=== PATIENT | female | born 1990 | race Caucasian/White ===

== ENCOUNTER 2017-10-10 15:31 | Emergency (ER) | payer MEDICAID, OTHER ==
[~2017-10-10] VITALS: Ht 170.2 cm; Wt 70.3 kg
[~2017-10-10 15:31] MED LIST: ACHD5005 PO; CPR500T PO; FERR-57 PO; OMEP20TA2 PO; PHEN100T26 PO; SULF1TAB38 PO
[2017-10-10 16:22] LABS: BASOPHILS % (AUTO) 0 % (0-10); EOSINOPHILS # (AUTO) 0.3 10^3/uL (0.0-0.3); EOSINOPHILS % (AUTO) 3 % (0-10); HEMATOCRIT 29 % (35-52); HEMOGLOBIN 8.6 G/DL (11.5-16.0); LYMPHOCYTES # (AUTO) 2.1 X 10^3 (1.0-4.0); LYMPHOCYTES % (AUTO) 24 % (12-44); MEAN CORPUSCULAR HEMOGLOBIN 23 PG (25-34); MEAN CORPUSCULAR HGB CONC 30 G/DL (32-36); MEAN CORPUSCULAR VOLUME 75 FL (80-99); MONOCYTES # (AUTO) 0.7 X 10^3 (0.0-1.0); MONOCYTES % (AUTO) 8 % (0-12); NEUTROPHILS # (AUTO) 5.6 X 10^3 (1.8-7.8); NEUTROPHILS % (AUTO) 65 % (42-75); PLATELET COUNT 396 10^3/uL (130-400); RED BLOOD COUNT 3.83 10^6/uL (4.35-5.85); RED CELL DISTRIBUTION WIDTH 16.8 % (10.0-14.5); WHITE BLOOD COUNT 8.6 10^3/uL (4.3-11.0)
--- NOTE | 2017-10-10 16:24 | ED GU-Female ---
General Chief Complaint: -Female Stated Complaint: R FLANK PAIN Nursing Triage Note: PATIENT STATES THAT SHE HAS POLYCYSTIC KIDNEY DISEASE AND HAS HAD PAIN X2 DAYS THAT WORSENED TODAY. STATES PAIN IN RIGHT FLANK FEELS LIKE A STONE. Nursing Sepsis Screen: No Definite Risk Source: patient Exam Limitations: no limitations History of Present Illness Date Seen by Provider: Oct 10, 2017 Time Seen by Provider: 16:22 Initial Comments to ER with reports of sudden onset right flank pain 1 hour ago. States it feels like a kidney stone. She states she is allergic to Toradol.. She reports a history of polycystic kidney disease. Timing/Duration: just prior to arrival Severity/Quality: moderate Location: right flank Radiation: none Activities at Onset: none Prior Genitourinary Problems: none Allergies and Home Medications Allergies Coded Allergies: ketorolac (Verified Allergy, Unknown, 10/10/17) Home Medications Ciprofloxacin 500 Mg Tablet, 1 TAB PO BID, (Reported) Ferrous Sulfate 325 Mg Tablet, 325 MG PO TID, (Reported) Hydrocodone Bit/Acetaminophen 1 Each Tablet, 1 EACH PO Q6H, (Reported) Hydrocodone/Acetaminophen 1 Each Tablet, 1 EACH PO Q6H PRN for PAIN-MODERATE Prescribed by: MADELIN PARKER on 10/10/17 1709 Omeprazole 20 Mg Tablet.dr, 20 MG PO DAILY, (Reported) Phenazopyridine Hcl 100 Mg Tablet, 100 MG PO TID, (Reported) Patient Home Medication List Home Medication List Reviewed: Yes Review of Systems Constitutional: see HPI EENTM: see HPI Respiratory: no symptoms reported Cardiovascular: no symptoms reported Genitourinary: see HPI Musculoskeletal: no symptoms reported Skin: no symptoms reported Psychiatric/Neurological: No Symptoms Reported Endocrine: No Symptoms Reported Past Vchagho-Vbwgpq-Mvrduu Hx Patient Social History Alcohol Use: Denies Use Recreational Drug Use: No Smoking Status: Never a Smoker 2nd Hand Smoke Exposure: No Recent Foreign Travel: No Contact w/Someone Who Travel: No Recent Infectious Disease Expo: No Physical Abuse: No Sexual Abuse: No Immunizations Up To Date Date of Pneumonia Vaccine: Jan 12, 2010 Seasonal Allergies Seasonal Allergies: No Past Medical History Respiratory: No Cardiac: No Neurological: Yes COOK PIE History: Tubal Ligation UTI-Chronic, Polycystic Kidney Disease Gastrointestinal: No (poss gallbladder problems 08/10/12 adm) Musculoskeletal: No Endocrine: No Cancer: No Psychosocial: No Nursing Suicide Risk Score: 0 Integumentary: No Blood Disorders: No Adverse Reaction/Blood Tranf: No Physical Exam Vital Signs Vital Signs - First Documented 10/10/17 15:47 Temp 98.7 Pulse 92 Resp 20 B/P (MAP) 151/115 (127) Pulse Ox 100 Capillary Refill : Less Than 3 Seconds General Appearance: WD/WN, no apparent distress HEENT: PERRL/EOMI, normal ENT inspection Neck: non-tender, full range of motion Respiratory: normal breath sounds, no respiratory distress, no accessory muscle use Gastrointestinal: normal bowel sounds, non tender, tenderness Extremities: normal range of motion, non-tender Neurologic/Psychiatric: alert, normal mood/affect, oriented x 3 Skin: normal color, warm/dry Progress/Results/Core Measures Suspected Sepsis Recent Fever Within 48 Hours: No Infection Criteria Present: None New/Unexplained Altered Menta: No Sepsis Screen: No Definite Risk SIRS Temperature:98.7 Pulse: 92 Respiratory Rate: 20 Laboratory Tests 10/10/17 16:04: White Blood Count 8.6 Blood Pressure 151 /115 Mean: 127 Laboratory Tests 10/10/17 16:04: Creatinine 1.61H, Platelet Count 396, Total Bilirubin 0.3 Results/Orders Lab Results Laboratory Tests Test 10/10/17 16:04 10/10/17 16:35 Range/Units White Blood Count 8.6 4.3-11.0 10^3/uL Red Blood Count 3.83 L 4.35-5.85 10^6/uL Hemoglobin 8.6 L 11.5-16.0 G/DL Hematocrit 29 L 35-52 % Mean Corpuscular Volume 75 L 80-99 FL Mean Corpuscular Hemoglobin 23 L 25-34 PG Mean Corpuscular Hemoglobin Concent 30 L 32-36 G/DL Red Cell Distribution Width 16.8 H 10.0-14.5 % Platelet Count 396 130-400 10^3/uL Mean Platelet Volume 10.0 7.4-10.4 FL Neutrophils (%) (Auto) 65 42-75 % Lymphocytes (%) (Auto) 24 12-44 % Monocytes (%) (Auto) 8 0-12 % Eosinophils (%) (Auto) 3 0-10 % Basophils (%) (Auto) 0 0-10 % Neutrophils # (Auto) 5.6 1.8-7.8 X 10^3 Lymphocytes # (Auto) 2.1 1.0-4.0 X 10^3 Monocytes # (Auto) 0.7 0.0-1.0 X 10^3 Eosinophils # (Auto) 0.3 0.0-0.3 10^3/uL Basophils # (Auto) 0.0 0.0-0.1 10^3/uL Sodium Level 143 135-145 MMOL/L Potassium Level 3.8 3.6-5.0 MMOL/L Chloride Level 113 H 98-107 MMOL/L Carbon Dioxide Level 22 21-32 MMOL/L Anion Gap 8 5-14 MMOL/L Blood Urea Nitrogen 21 H 7-18 MG/DL Creatinine 1.61 H 0.60-1.30 MG/DL Estimat Glomerular Filtration Rate 39 BUN/Creatinine Ratio 13 Glucose Level 87 70-105 MG/DL Calcium Level 9.1 8.5-10.1 MG/DL Total Bilirubin 0.3 0.1-1.0 MG/DL Aspartate Amino Transf (AST/SGOT) 15 5-34 U/L Alanine Aminotransferase (ALT/SGPT) 9 0-55 U/L Alkaline Phosphatase 86 40-136 U/L Total Protein 7.3 6.4-8.2 GM/DL Albumin 4.2 3.2-4.5 GM/DL Urine Color YELLOW Urine Clarity CLEAR Urine pH 6.5 5-9 Urine Specific [place] 1.010 L 1.016-1.022 Urine Protein 1+ H NEGATIVE Urine Glucose (UA) NEGATIVE NEGATIVE Urine Ketones NEGATIVE NEGATIVE Urine Nitrite NEGATIVE NEGATIVE Urine Bilirubin NEGATIVE NEGATIVE Urine Urobilinogen NORMAL NORMAL MG/DL Urine Leukocyte Esterase 1+ H NEGATIVE Urine RBC (Auto) 5+ H NEGATIVE Urine RBC 0-2 /HPF Urine WBC 2-5 /HPF Urine Squamous Epithelial Cells 2-5 /HPF Urine Renal Epithelial Cells NONE /HPF Urine Crystals PRESENT H /LPF Urine Amorphous Sediment FEW FARAZ URATES H /LPF Urine Bacteria NEGATIVE /HPF Urine Casts NONE /LPF Urine Mucus NEGATIVE /LPF Urine Culture Indicated NO Urine Opiates Screen NEGATIVE NEGATIVE Urine Oxycodone Screen NEGATIVE NEGATIVE Urine Methadone Screen NEGATIVE NEGATIVE Urine Propoxyphene Screen NEGATIVE NEGATIVE Urine Barbiturates Screen NEGATIVE NEGATIVE Ur Tricyclic Antidepressants Screen NEGATIVE NEGATIVE Urine Phencyclidine Screen NEGATIVE NEGATIVE Urine Amphetamines Screen NEGATIVE NEGATIVE Urine Methamphetamines Screen NEGATIVE NEGATIVE Urine Benzodiazepines Screen NEGATIVE NEGATIVE Urine Cocaine Screen NEGATIVE NEGATIVE Urine Cannabinoids Screen NEGATIVE NEGATIVE My Orders Orders - PARKER,PETER J ENGAGEMENT ENGINEER Ua Culture If Indicated (10/10/17 16:16) Cbc With Automated Diff (10/10/17 16:16) Urine Bedside (10/10/17 16:16) Comprehensive Metabolic Panel (10/10/17 16:16) Iv Heplock-Insert (Order) (10/10/17 16:16) Fentanyl Injection (Sublimaze Injection (10/10/17 16:30) Ct Abd/Pelvis Wo(Kidney Stone) (10/10/17 16:21) Drug Screen Stat (Urine) (10/10/17 16:22) Ondansetron Injection (Zofran Injectio (10/10/17 16:45) Medications Given in ED Current Medications Medications Dose Ordered Sig/Brown Route Start Time Stop Time Status Last Admin Dose Admin Fentanyl Citrate 50 mcg ONCE ONCE IVP 10/10/17 16:30 10/10/17 16:31 DC 10/10/17 16:32 50 MCG Ondansetron HCl 8 mg ONCE ONCE IVP 10/10/17 16:45 10/10/17 16:46 DC 10/10/17 16:43 8 MG Vital Signs/I&O 10/10/17 15:47 Temp 98.7 Pulse 92 Resp 20 B/P (MAP) 151/115 (127) Pulse Ox 100 Capillary Refill : Less Than 3 Seconds Blood Pressure Mean: 127 Diagnostic Imaging Diagonstic Imaging: CT Comments NAME: HARRIETT MOORE [facility] REC#: [id number] PT STATUS: REG ER : 1990 PHYSICIAN: MADELIN PARKER APRN ADMIT DATE: 10/10/17/ER Draft Date of Exam:10/10/17 CT ABD/PELVIS WO(KIDNEY STONE) PROCEDURE: CT urinary tract, rule out kidney stone. TECHNIQUE: Multiple contiguous axial images were obtained through the abdomen and pelvis without the use of intravenous contrast. INDICATION: Back pain. History of polycystic kidney disease. COMPARISON: 08/11/2012. FINDINGS: The lung bases are clear. The liver appears unremarkable. The gallbladder is absent. The pancreas, spleen, and adrenal glands appear unremarkable. The kidneys are abnormal in appearance with innumerable cystic lesions seen throughout both renal cortices, consistent with the given history of polycystic kidney. Evaluation for solid neoplasm is limited without intravenous contrast. The overall appearance of the kidneys however appears fairly similar to the prior study. Several punctate nonobstructive calculi are seen bilaterally. No ureteral stone or obstructive change is seen. The appendix is visualized and appears unremarkable. Uterus and adnexa appear unremarkable. There is no free fluid, free air, or adenopathy. There is moderate stool in the colon without evidence of obstruction. The abdominal aorta appears normal in caliber. There are prominent lymph nodes in the retroperitoneum which are nonspecific but are similar in appearance to the prior CT from 2012. There is no free fluid, free air, or focal inflammatory process. No evidence of bowel obstruction. The abdominal aorta appears normal in caliber. IMPRESSION: 1. The kidneys are abnormal in appearance with innumerable cystic lesions seen throughout both renal cortices, consistent with the given history of polycystic kidney. The overall appearance does not appear appreciably changed from the prior CT. There are persistent bilateral nonobstructive renal calculi. No ureteral stone and obstructive changes are seen. 2. Prominent retroperitoneal lymph nodes are nonspecific but appear similar to the prior exam from 2012. 3. No additional abnormality is demonstrated. Dictated on workstation # [id number] Dict: 10/10/17 1659 Trans: 10/10/17 1713 [id number] Interpreted by: HERIBERTO GOEL DO Electronically signed by: Departure Impression Primary Impression: Chronic renal insufficiency Additional Impressions: Anemia Right flank pain Disposition: 01 HOME, SELF-CARE Condition: Stable Departure-Patient Inst. Decision time for Depature: 17:07 Referrals: NO,LOCAL PHYSICIAN (PCP/Family) Primary Care Physician Patient Instructions: Chronic Kidney Disease Add. Discharge Instructions: 1. Follow-up with your doctor within 2-3 days to repeat labs. Your little anemic so you should start taking an krga-awk-cxkrsxx iron supplement if you're not already taking 1. Return to ER for lightheadedness, shortness of breath, worsening pain, fevers or other concerns. All discharge instructions reviewed with patient and/or family. Voiced understanding. Scripts Hydrocodone/Acetaminophen ([place] 5-325 Tablet) 1 Each Tablet 1 EACH PO Q6H PRN for PAIN-MODERATE, #10 TAB Prov: MADELIN PARKER ENGAGEMENT ENGINEER 10/10/17 Work/School Note: Work Release Form Date Seen in the Emergency Department: Oct 10, 2017 Return to Work: Oct 12, 2017 MADELIN PARKER APRN Oct 10, 2017 16:24
[2017-10-10] MEDS ORDERED: fentaNYL INJECTION 100 MCG/2 ML AMP IVP ONE (16:30)
[2017-10-10 16:35] LABS: ALBUMIN 4.2 GM/DL (3.2-4.5); BILIRUBIN,TOTAL 0.3 MG/DL (0.1-1.0); CALCIUM 9.1 MG/DL (8.5-10.1); CREATININE SERUM 1.61 MG/DL (0.60-1.30); POTASSIUM 3.8 MMOL/L (3.6-5.0); TOTAL PROTEIN 7.3 GM/DL (6.4-8.2)
[2017-10-10 16:42] LABS: BILIRUBIN,URINE NEGATIVE (NEGATIVE); CLARITY,URINE CLEAR; COLOR,URINE YELLOW; GLUCOSE, URINE (UA) NEGATIVE (NEGATIVE); KETONES,URINE NEGATIVE (NEGATIVE); LEUKOCYTE ESTERASE ,URINE 1+ (NEGATIVE); NITRITE,URINE NEGATIVE (NEGATIVE); PH,URINE 6.5 (5-9); PROTEIN,URINE 1+ (NEGATIVE); UROBILINOGEN,URINE NORMAL (NORMAL)
[2017-10-10] MEDS ORDERED: ONDANSETRON 4 MG/2 ML (SDV) Z0FRAN IVP ONE (16:45)
[2017-10-10 16:52] LABS: AMORPHOUS SEDIMENT,UR FEW AMOR URATES /LPF; BACTERIA,URINE NEGATIVE /HPF; RBC,URINE 0-2 /HPF
[2017-10-10 16:56] LABS: AMPHETAMINE SCREEN, URINE NEGATIVE (NEGATIVE); BARBITURATE SCREEN URINE NEGATIVE (NEGATIVE); BENZODIAZEPINES SCREEN URINE NEGATIVE (NEGATIVE); CANNABINOID SCREEN, URINE NEGATIVE (NEGATIVE); COCAINE SCREEN URINE NEGATIVE (NEGATIVE); METHADONE STAT NEGATIVE (NEGATIVE); METHAMPHETAMINE SCREEN URINE S NEGATIVE (NEGATIVE); OPIATE SCREEN URINE NEGATIVE (NEGATIVE); OXYCODONE STAT NEGATIVE (NEGATIVE); PROPOXYPHENE STAT NEGATIVE (NEGATIVE); TRICYCLIC ANTIDEPRESSANTS SCRE NEGATIVE (NEGATIVE)
[2017-10-10] MEDS ORDERED: HYDR-757 PO (17:09)
--- NOTE | 2017-10-10 17:13 | Diagnostic Imaging Report ---
PROCEDURE: CT urinary tract, rule out kidney stone. TECHNIQUE: Multiple contiguous axial images were obtained through the abdomen and pelvis without the use of intravenous contrast. INDICATION: Back pain. History of polycystic kidney disease. COMPARISON: 08/11/2012. FINDINGS: The lung bases are clear. The liver appears unremarkable. The gallbladder is absent. The pancreas, spleen, and adrenal glands appear unremarkable. The kidneys are abnormal in appearance with innumerable cystic lesions seen throughout both renal cortices, consistent with the given history of polycystic kidney. Evaluation for solid neoplasm is limited without intravenous contrast. The overall appearance of the kidneys however appears fairly similar to the prior study. Several punctate nonobstructive calculi are seen bilaterally. No ureteral stone or obstructive change is seen. The appendix is visualized and appears unremarkable. Uterus and adnexa appear unremarkable. There is no free fluid, free air, or adenopathy. There is moderate stool in the colon without evidence of obstruction. The abdominal aorta appears normal in caliber. There are prominent lymph nodes in the retroperitoneum which are nonspecific but are similar in appearance to the prior CT from 2012. There is no free fluid, free air, or focal inflammatory process. No evidence of bowel obstruction. The abdominal aorta appears normal in caliber. IMPRESSION: 1. The kidneys are abnormal in appearance with innumerable cystic lesions seen throughout both renal cortices, consistent with the given history of polycystic kidney. The overall appearance does not appear appreciably changed from the prior CT. There are persistent bilateral nonobstructive renal calculi. No ureteral stone and obstructive changes are seen. 2. Prominent retroperitoneal lymph nodes are nonspecific but appear similar to the prior exam from 2013. 3. No additional abnormality is demonstrated. Dictated by: Dictated on workstation # [id number]
[2017-10-10 17:24] VITALS: BP 151/115
[2017-10-10] MEDS ORDERED: morphine INJ 10 MG/ML 1ML (SYR OR VIAL) IVP ONE (17:30)
== END 2017-10-10 17:34 | disposition home or self-care (01) ==
LOC: EDUNIT# 15:31 → ER 15:33
DX: N18.9 Chronic kidney disease, unspecified (principal); D63.1 Anemia in chronic kidney disease; R10.9 Unspecified abdominal pain; Z98.51 Tubal ligation status; Z88.6 Allergy status to analgesic agent
CPT/HCPCS: 36415; 74176; 80053; 80306; 81000; 84703; 85025; 96374; 96375

== ENCOUNTER 2017-11-21 13:42 | Emergency (ER) | payer MEDICAID ==
[~2017-11-21] VITALS: Ht 170.2 cm; Wt 72.6 kg
[~2017-11-21 13:42] MED LIST changes: +HYDR-757 PO
--- OUTSIDE RECORDS SUMMARY | 2017-11-21 13:48 | XMS REPORT ---
Author Author CHINMAY LOCKWOOD [facility] Address [address] [place] [address] Care Team Providers Care Safety Lamp Keeper Name Role Phone CHINMAY LOCKWOOD Unavailable PROBLEMS Type Condition ICD9-CM Code DCC10-PQ Code Onset Dates Condition Status SNOMED Code Problem Abdominal pain, unspecified site 789.00 Active 79409915 Problem Other and unspecified ovarian cyst 620.2 Active 73689432 Problem Diarrhea 787.91 Active 58429965 Problem Trunk, insect bite, nonvenomous, without mention of infection 911.4 Active 51865373 Problem Abdominal pain, other specified site 789.09 Active 45211611 Problem Unspecified episodic mood disorder 296.90 Active 028833030 Problem Anxiety state, unspecified 300.00 Active 176234667 Problem Calculus of gallbladder with other cholecystitis, without mention of obstruction 574.10 Active 62623404 Problem Urinary tract infection, site not specified 599.0 Active 03091387 Problem Unspecified infective otitis externa 380.10 Active 60094886 Problem Acute tonsillitis 463 Active 06478389 ALLERGIES No Information ENCOUNTERS Encounter Location Date Diagnosis [address] [id number] [id number] May, Dental examination Z01.[address] [id number][place] [id number] Jan, [address] [id number][place] [id number] Sep, [address] [id number][place] [id number] Sep, Dysuria 788.1 and Polycystic kidney disease 753.12 [facility] [address] [id number][place] [address] Jul, [facility] [place] [facility] [address] [id number] [place] [address] Jul, [facility] [place] [facility] [address] [id number] [place] [address] Sep, [facility] [place] [facility] [address] [id number] [place] [address] Sep, [facility] [place] [facility] [address] [id number] [place] [address] Sep, [facility] [place] [facility] [address] [id number] [place] [address] Sep, [facility] [place] [facility] [address] [id number] [place] [address] August, [facility] [place] [facility] [address] [id number] [place] [address] August, [facility] [place] [facility] [address] [id number] [place] [address] August, [facility] [place] [facility] [address] [id number] [place] [address] August, [facility] [place] [facility] [address] [id number] [place] [address] August, [facility] [place] [facility] [address] [id number] [place] [address] August, [facility] [place] [facility] [address] [id number] [place] [address] Jul, [facility] [place] [facility] [address] [id number] [place] [address] Jul, [facility] [place] [facility] [address] [id number] [place] [address] Jul, [facility] [place] [facility] [address] [id number] [place] [address] Jul, [facility] [place] [facility] [address] [id number] [place] [address] Jul, [facility] [address] [facility] [id number][place] [id number] Jul, [facility] [place] [facility] [address] [id number] [place] [address] Jul, [facility] [place] [facility] [address] [id number] [place] [address] Jun, [facility] [place] [facility] [address] [id number] [place] [address] Jun, [facility] [place] [facility] [address] [id number] [place] [address] May, [facility] [place] [facility] [address] [id number] [place] May, [facility] [place] [facility] [address] [id number] [place] [address] May, [facility] [place] [facility] [address] [id number] [place] [address] May, [facility] [place] [facility] [address] [id number] [place] [address] May, [facility] [place] [facility] [address] [id number] [place] [address] May, [facility] [place] [facility] [address] [id number][place] [address] Apr, [facility] [place] [facility] [address] [id number], [place] [address] Apr, [facility] [address] [facility] [id number] [place] [id number] Mar, [facility] [place] [facility] [address] [id number], [place] [address] Mar, [facility] [place] [facility] [address] [id number], [place] [address] Feb, [facility] [place] [facility] [address] [id number] [place] [address] Feb, [facility] [address] [id number] [place] [address] Feb, [facility] [place] [facility] [address] [id number] [place] [address] Feb, [facility] [address] [id number] [place] [address] Feb, [facility] [place] [facility] [address] [id number] [place] [address] Oct, [facility] [address] [id number] [place] [address] Sep, [facility] [place] [facility] [address] [id number] [place] [address] Sep, [facility] [address] [id number] [place] [address] Sep, [facility] [address] [id number] [place] [address] August, [facility] [address] [id number] [place] [address] August, [facility] [address] [id number] [place] [address] August, [facility] [address] [id number] [place] [address] August, [facility] [place] [facility] [address] [id number] [place] [address] August, [facility] [place] [facility] [address] [id number] [place] [address] Apr, [facility] [place] [facility] [address] [id number] [place] [address] Apr, [facility] [place] [facility] [address] [id number] [place] [address] Apr, [facility] [place] [facility] [address] [id number] [place] [address] Apr, [facility] [place] [facility] [address] [id number] [place] [address] Apr, [facility] [place] [facility] [address] [id number] [place] [address] Mar, [facility] [place] [facility] [address] [id number] [place] [address] Mar, [facility] [place] [facility] [address] [id number] [place] [address] Mar, [facility] [place] [facility] [address] [id number] [place] [address] Mar, [facility] [place] [facility] [address] [id number] [place] [address] Mar, [facility] [place] [facility] [address] [id number] [place] [address] Feb, [facility] [place] [facility] [address] [id number] [place] [address] Feb, [facility] [place] [facility] [address] [id number] [place] [address] Feb, [facility] [place] [facility] [address] [id number] [place] [address] Feb, [facility] [place] [facility] [address] [id number] [place] [address] Feb, [facility] [place] [facility] [address] [id number] [place] [address] Jan, [facility] [place] [facility] [address] [id number] [place] [address] Jan, [facility] [place] [facility] [address] [id number] [place] [address] Jan, [facility] [place] [facility] [address] [id number] [place] [address] Jan, [facility] [address] [id number] [place] [address] Jan, [facility] [address] [id number], [place] [address] Jan, [facility] [address] [id number] [place] [address] Jan, [facility] [address] [id number], [place] [address] Nov, IMMUNIZATIONS No Known Immunizations SOCIAL HISTORY Never Assessed REASON FOR VISIT Triage Pedro GUPTA PLAN OF CARE VITAL SIGNS MEDICATIONS Unknown Medications RESULTS No Results PROCEDURES No Known procedures INSTRUCTIONS MEDICATIONS ADMINISTERED No Known Medications MEDICAL (GENERAL) HISTORY Type Description Date Medical History polycystic kidneys Medical History hypertension Medical History Anemia Medical History Blood Transfusion Surgical History tubal ligation 2011 Surgical History section 2011 Surgical History Galbladder 2014 Hospitalization History Surgery(s)/Childbirth(s) only Hospitalization History kidney infections
--- OUTSIDE RECORDS SUMMARY | 2017-11-21 13:48 | XMS REPORT ---
Author Author SILVIA Alexander [facility] Address [address] [place] [address] Care Team Providers Care Mail Order Sorter Name Role Phone SILVIA Alexander Unavailable PROBLEMS Type Condition ICD9-CM Code FYI23-SR Code Onset Dates Condition Status SNOMED Code Problem Abdominal pain, unspecified site 789.00 Active 30783502 Problem Other and unspecified ovarian cyst 620.2 Active 99194015 Problem Diarrhea 787.91 Active 54030095 Problem Trunk, insect bite, nonvenomous, without mention of infection 911.4 Active 82120855 Problem Abdominal pain, other specified site 789.09 Active 74699651 Problem Unspecified episodic mood disorder 296.90 Active 322714279 Problem Anxiety state, unspecified 300.00 Active 041654556 Problem Calculus of gallbladder with other cholecystitis, without mention of obstruction 574.10 Active 23007674 Problem Urinary tract infection, site not specified 599.0 Active 51461953 Problem Unspecified infective otitis externa 380.10 Active 62125353 Problem Acute tonsillitis 463 Active 07348241 ALLERGIES Substance Reaction Event Type Date Status Toradol Unknown Non Drug Allergy May, Active ENCOUNTERS Encounter Location Date [facility] [address] [id number] [id number] Oct, [facility] [address] [address] [id number] [id number] May, Dental [facility] Z01.20 [facility] [address] [id number][place] [id number] Jan, [facility] [address] [id number][place] [id number] Sep, [facility] [id number] [place] [id number] Sep, Dysuria 788.1 and Polycystic kidney disease 753.12 [facility] [id number], [place] [address] 14 Jul, 2014 [facility] [address] [id number], [place] [address] Jul, [facility] [id number], [place] [address] Sep, [facility] [address] [id number], [place] [address] Sep, [facility] [address] [id number], [place] [address] Sep, [facility] [address] [id number], [place] [address] Sep, [facility] [address] [id number], [place] [address] August, [facility] [address] [id number], [place] [address] August, [facility] [address] [id number], [place] [address] August, [facility] [address] [id number], [place] [address] August, [facility] [address] [id number], [place] [address] August, [facility] [address] [id number], [place] [address] August, [facility] [address] [id number], [place] [address] Jul, [facility] [address] [id number], [place] [address] Jul, [facility] [address] [id number], [place] [address] Jul, [facility] [place] [facility] [address] [id number] [place] [address] Jul, [facility] [place] [facility] [address] [id number], [place] [address] Jul, [facility] [address] [id number] [id number] Jul, [facility] [place] [facility] [address] [facility] [id number], [place] [address] Jul, [facility] [place] [facility] [address] [id number] [place] [address] Jun, [facility] [place] [facility] [address] [facility] [id number], [place] [address] Jun, [facility] [place] [facility] [address] [facility] [id number], [place] [address] May, [facility] [place] [facility] [address] [id number], [place] [address] May, [facility] [place] [facility] [address] [id number], [place] [address] May, [facility] [place] [facility] [address] [facility] [id number], [place] [address] May, [facility] [place] [facility] [address] [id number], [place] [address] May, [facility] [place] [facility] [address] [facility] [id number], [place] [address] May, [facility] [place] [facility] [address] [id number], [place] [address] Apr, [facility] [place] [facility] [address] [facility] [id number], [place] [address] Apr, [facility] [address] [id number][place] [id number] Mar, [facility] [place] [facility] [address] [facility] [id number] [place] [address] Mar, [facility] [address] [id number] [place] [address] Feb, [facility] [address] [id number] [place] [address] Feb, [facility] [address] [id number] [place] [address] Feb, [facility] [address] [id number] [place] [address] Feb, [facility] [address] [id number] [place] [address] Feb, [facility] [address] [id number] [place] [address] Oct, [facility] [address] [id number] [place] [address] Sep, [facility] [address] [id number] [place] [address] Sep, [facility] [address] [id number] [place] [address] Sep, [facility] [address] [id number] [place] [address] August, [facility] [address] [id number] [place] [address] August, [facility] [address] [id number] [place] [address] August, [facility] [address] [id number] [place] [address] August, [facility] [address] [id number] [place] [address] August, [facility] [address] [id number] [place] [address] Apr, [facility] [address] [id number] [place] [address] 26 Apr, 2011 [facility] [place] [facility] [address] [id number] [place] [address] 18 Apr, 2011 [facility] [place] [facility] [address] [id number] [place] [address] 16 Apr, 2011 [facility] [place] [facility] [address] [id number] [place] [address] Apr, [facility] [place] [facility] [address] [id number] [place] [address] Mar, [facility] [place] [facility] [address] [id number] [place] [address]- [address] Mar, [facility] [place] [facility] [address] [id number] [place] [address] Mar, [facility] [place] [facility] [address] [id number] [place] [address] Mar, [facility] [place] [facility] [address] [id number] [place] [address] Mar, [facility] [place] [facility] [address] [id number] [place] [address] Feb, [facility] [place] [facility] [address] [id number] [place] [address]- [address] Feb, [facility] [place] [facility] [address] [id number], [place] [address] Feb, [facility] [place] [facility] [address] [id number] [place] [address]- [address] Feb, [facility] [place] [facility] [address] [id number] [place] Feb, [facility] [place] [facility] [address] [id number] [place] [address] Jan, [facility] [place] [facility] [address] [id number], [place] [address] Jan, [facility] [address] [facility] [id number], [place] [address] Jan, [facility] [address] [id number], [place] [address] Jan, [facility] [address] [id number], [place] [address] Jan, [facility] [address] [id number], [place] [address] Jan, [facility] [address] [facility] [id number], [place] [address] Jan, [facility] [id number], [place] [address] Nov, IMMUNIZATIONS No Known Immunizations SOCIAL HISTORY Never Assessed REASON FOR VISIT toothache PLAN OF CARE Activity Details Follow Up prn Reason:GILLIAN W/Hygiene VITAL SIGNS Height 65 in 2017-05-19 Blood pressure systolic 163 mmHg 2017-05-19 Blood pressure diastolic 101 mmHg 2017-05-19 MEDICATIONS Medication Instructions Dosage Frequency Start Date End Date Duration Status Keflex 500 MG Orally Twice a day 1 capsule 12h Not-Taking Cipro 500 mg 1 tablet by Oral route every 12 hours for 7 day(s) with a full glass of water August, Not-Taking Lexapro 10 mg 1 tablet by Oral route 1 time per day Sep, Not-Taking Lisinopril 5 mg 1 tablet by Oral route 1 time per day kidney's/ blood pressure Feb, Not-Taking Bactrim DS 800-160 mg take 1 tablet by oral route every 12 hours for 5 days Apr, Not-Taking Levaquin 750 mg 1 tablet by Oral route every 24 hours for 7 days Jul Not-Taking Triamcinolone Acetonide 0.1 % apply 1 Cream a thin layer to the affected area(s) by Topical route 3 times per day for 5 days 15 gram 27 Aug, 2013 Not-Taking Augmentin 875-125 mg 1 tablet by Oral route 2 times per day for 10 day(s) May, Not-Taking Cipro 250 mg 1 tablet by Oral route every 12 hours for 10 day(s) Apr Not-Taking Omeprazole Magnesium 20 mg 1 capsule by Oral route 2 times per day for 14 days August, Not-Taking Pyridium 200 mg 1 tablet by Oral route 3 times per day for 3 day(s) for bladder pain Jul, Not-Taking Vitamin B 12 Active Amoxicillin 500 mg Orally 3 times a day 1 capsule 8h 10 day(s) Active Amoxicillin 500 mg 2 capsule by Oral route 2 times per day for 7 day(s) Jun, Not-Taking tramadol 50 mg take 1-2 tablet by Oral route every 8 hours as needed PRN pain Sep, Not-Taking Bentyl 20 mg 1 tablet by Oral route every 6 hours PRN August, Not-Taking RESULTS No Results PROCEDURES Procedure Date Ordered Result Body Site LTD ORAL EVALUATION - PROBLEM FOCUS May 19, 2017 INTRAORL-PERIAPICAL 1 FILM 07135 May 19, 2017 BITEWING - SINGLE FILM May 19, 2017 INSTRUCTIONS MEDICATIONS ADMINISTERED No Known Medications MEDICAL (GENERAL) HISTORY Type Description Date Medical History polycystic kidneys Medical History hypertension Medical History Anemia Medical History Blood Transfusion Surgical History tubal ligation 2011 Surgical History section 2012 Surgical History Galbladder 2015 Hospitalization History Surgery(s)/Childbirth(s) only Hospitalization History kidney infections
--- OUTSIDE RECORDS SUMMARY | 2017-11-21 13:48 | XMS REPORT | Continuity of Care Document ---
Author Author [facility] Organization [facility] Address Unknown Phone Unavailable Care Team Providers Care Database Programmer Name Role Phone NO, LOCAL PHYSICIAN PP Unavailable Insurance Providers Payer Name Policy Number Subscriber Name Relationship Self Pay Lalitha Vásquez Abelardo 01 Self / Same As Patient Advance Directives Directive Response Recorded Date Advance Directives N 08/10/12 6:03pm Health Care Power of Measurement Department Chief Clerk N 08/10/12 6:03pm Organ Donor Y 08/10/12 6:03pm Problems No Known Problems or Medical conditions. Social History History Response Recorded Date/Time Alcohol Use Occasionally Uses 08/10/12 5: 55pm Recreational Drug Use N 08/10/12 5:55pm Allergies, Adverse Reactions, Alerts Allergen Type Severity Reaction Last Updated No Known Drug Allergies 08/10/12 Medications Medication Dose Units Route Sig Qty Days Omeprazole 20 Mg PO DAILY Phenazopyridine HCl (Pyridium) 100 Mg PO TID Ciprofloxacin (Cipro) 1 Tab PO BID 7 Ferrous Sulfate 325 Mg PO TID 30 Hydrocodone Bit/Acetaminophen (Hydrocodon-Acetaminophen 5-325) 1 Each PO Q6H Immunizations Name Given Type Date of Pneumonia Vaccine 01/12/10 H Response Recorded Date/Time Status not known Unknown Results Test Date Result Interp. Ref. Range Alanine Aminotransferase (ALT/SGPT) August 12, 2012 6:57am 26 U/L L 30-65 Albumin August 12, 2012 6:57am 2.9 G/DL L 3.4-5.0 Alkaline Phosphatase August 12, 2012 6:57am 103 U/L N 50-136 Amylase Level August 11, 2012 5:19am 45 U/ L N 25-115 Aspartate Amino Transf (AST/SGOT) August 12, 2012 6:57am 12 U/L L 15-37 BUN/Creatinine Ratio August 12, 2012 6:57am 11 - Band Neutrophils August 10, 2012 4:15pm 0 % - Basophils # (Auto) August 11, 2012 5:19am 0.0 10^3/uL N 0.0-0.1 Basophils % (Manual) August 10, 2012 4:15pm 0 % - Basophils (%) (Auto) August 11, 2012 5:19am 0 % N 0-10 Blood Urea Nitrogen August 12, 2012 6:57am 17 MG/DL N 7-18 Calcium Level August 12, 2012 6:57am 8.2 MG /DL L 8.5-10.1 Carbon Dioxide Level August 12, 2012 6:57am 27 MMOL/L N 21-32 Chloride Level August 12, 2012 6:57am 106 MMOL/L N 101-110 Creatinine August 12, 2012 6:57am 1.5 MG/ DL H 0.6-1.3 Eosinophils # (Auto) August 11, 2012 5:19am 1.1 10^3/uL H 0.0-0.3 Eosinophils % (Manual) August 10, 2012 4:15pm 8 % - Eosinophils (%) (Auto) August 11, 2012 5:19am 11 % H 0-10 Folate August 12, 2012 6:57am 5.3 NG/ML - Glucose Level August 12, 2012 6:57am 98 MG/ DL N 74-106 Hematocrit August 12, 2012 6:57am 32 % L 35-52 Hemoglobin August 12, 2012 6:57am 10.0 G/ DL L 11.5-16.0 Iron Level August 12, 2012 6:57am 25 UG/DL L 50-175 Lipase August 11, 2012 5:19am 111 U/L N 73-393 Lymphocytes # (Auto) August 11, 2012 5:19am 3.5 X 10^3 N 1.0-4.0 Lymphocytes % (Manual) August 10, 2012 4:15pm 42 % - Lymphocytes (%) (Auto) August 11, 2012 5:19am 35 % N 12-44 Magnesium Level August 12, 2012 6:57am 1.8 MG/DL N 1.8-2.4 Mean Corpuscular Hemoglobin August 12, 2012 6:57am 27 PG N 25-34 Mean Corpuscular Hemoglobin Concent August 12, 2012 6:57am 32 G/DL N 32-36 Mean Corpuscular Volume August 12, 2012 6:57am 84 FL N 80-99 Mean Platelet Volume August 12, 2012 6:57am 10.7 FL H 7.4-10.4 Monocytes # (Auto) August 11, 2012 5:19am 0.6 X 10^3 N 0.0-1.0 Monocytes % (Manual) August 10, 2012 4:15pm 2 % - Monocytes (%) (Auto) August 11, 2012 5:19am 6 % N 0-12 Neutrophils # (Auto) August 11, 2012 5:19am 4.8 X 10^3 N 1.8-7.8 Neutrophils % (Manual) August 10, 2012 4:15pm 48 % - Neutrophils (%) (Auto) August 11, 2012 5:19am 48 % N 42-75 Platelet Count August 12, 2012 6:57am 254 10^3/uL N 130-400 Potassium Level August 12, 2012 6:57am 4.2 MMOL/L N 3.6-5.0 Red Blood Count August 12, 2012 6:57am 3.75 10^6/uL L 4.35-5.85 Red Cell Distribution Width August 12, 2012 6:57am 14.7 % H 10.0-14.5 Sodium Level August 12, 2012 6:57am 141 MMOL/L N 135-145 Total Bilirubin August 12, 2012 6:57am 0.1 MG/DL N 0.0-1.0 Total Protein August 12, 2012 6:57am 6.1 G/ DL L 6.4-8.2 Urine Bacteria August 11, 2012 11:45am NEGATIVE /HPF - Urine Bilirubin August 11, 2012 11:45am NEGATIVE - Urine Casts August 11, 2012 11:45am NONE / LPF - Urine Clarity August 11, 2012 11:45am CLEAR - Urine Color August 11, 2012 11:45am YELLOW - Urine Crystals August 11, 2012 11:45am NONE /LPF - Urine Culture Indicated August 11, 2012 11:45am NO - Urine Glucose (UA) August 11, 2012 11:45am NEGATIVE - Urine Ketones August 11, 2012 11:45am NEGATIVE - Urine Leukocyte Esterase August 11, 2012 11:45am TRACE H - Urine Mucus August 11, 2012 11:45am NEGATIVE /LPF - Urine Nitrite August 11, 2012 11:45am NEGATIVE - Urine Protein August 11, 2012 11:45am NEGATIVE - Urine RBC August 11, 2012 11:45am NONE / HPF - Urine Specific Eleele August 11, 2012 11:45am 1.005 L - Urine Squamous Epithelial Cells August 11, 2012 11:45am 5-10 /HPF - Urine Urobilinogen August 11, 2012 11:45am NORMAL MG/DL - Urine WBC August 11, 2012 11:45am 2-5 /HPF - Urine pH August 11, 2012 11:45am 8 - Vitamin B12 Level August 12, 2012 6:57am 348 PG/ML - White Blood Count August 12, 2012 6:57am 10.6 10^3/uL N 4.3-11.0 Estimat Glomerular Filtration Rate August 10, 2012 4:15pm 47 - Blood Morphology Comment August 10, 2012 4:15pm NORMAL - Urine RBC (Auto) August 11, 2012 11:45am NEGATIVE - Procedures Procedure Code Date Urine Culture 08/10/12 Encounters Encounter Location Date/Time Discharged Inpatient [facility] 5:44pm
--- OUTSIDE RECORDS SUMMARY | 2017-11-21 13:49 | XMS REPORT | Continuity of Care Document ---
Author Author [facility] Address Unknown Phone Unavailable Allergies Active Description Code Type Severity Reaction Onset Reported/Identified Relationship to Patient Clinical Status Yes No Known Drug Allergies [id number] Drug Allergy Unknown N/A 08/10/2012 Yes ketorolac [id number] Drug Allergy Unknown N/A 10/10/2017 Medications There is no data. Problems Date Dx Coded Attending Type Code Diagnosis Diagnosed By 11/26/2010 427.89 Other Specified Cardiac Dysrhythmias 11/26/2010 753.12 POLYCYSTIC KIDNEY 11/26/2010 791.0 PROTEINURIA 11/26/2010 V25.09 Gynecologic Services Contraceptive General Counseling 11/26/2010 427.89 Other Specified Cardiac Dysrhythmias 11/26/2010 753.12 POLYCYSTIC KIDNEY 11/26/2010 791.0 PROTEINURIA 11/26/2010 V25.09 Gynecologic Services Contraceptive General Counseling 11/26/2010 427.89 Other Specified Cardiac Dysrhythmias 11/26/2010 753.12 POLYCYSTIC KIDNEY 11/26/2010 791.0 PROTEINURIA 11/26/2010 V25.09 Gynecologic Services Contraceptive General Counseling 11/26/2010 SKYLAR MCKEON DO 427.89 Other Specified Cardiac Dysrhythmias 11/26/2010 SKYLAR MCKEON DO 753.12 POLYCYSTIC KIDNEY 11/26/2010 SKYLAR MCKEON DO 791.0 PROTEINURIA 11/26/2010 SKYLAR MCKEON DO V25.09 Gynecologic Services Contraceptive General Counseling 11/26/2010 YOVANNY SALGADO APRN 427.89 Other Specified Cardiac Dysrhythmias 11/26/2010 YOVANNY SALGADO APRN 753.12 POLYCYSTIC KIDNEY 11/26/2010 YOVANNY SALGADO APRN 791.0 PROTEINURIA 11/26/2010 YOVANNY SALGADO APRN E V25.09 Gynecologic Services Contraceptive General Counseling 11/26/2010 SKYLAR MCKEON DO 427.89 Other Specified Cardiac Dysrhythmias 11/26/2010 MCKEON DO, SKYLAR K 753.12 POLYCYSTIC KIDNEY 11/26/2010 MCKEON DO, SKYLAR K 791.0 PROTEINURIA 11/26/2010 MCKEON DO, SKYLAR K V25.09 Gynecologic Services Contraceptive General Counseling 11/26/2010 MICHELA BERRY APRN 427.89 Other Specified Cardiac Dysrhythmias 11/26/2010 MICHELA BERRY APRN 753.12 POLYCYSTIC KIDNEY 11/26/2010 MICHELA BERRY APRN 791.0 PROTEINURIA 11/26/2010 MICHELA BERRY APRN V25.09 Gynecologic Services Contraceptive General Counseling 11/26/2010 RAERAFAL MONCADA APRN N 427.89 Other Specified Cardiac Dysrhythmias 11/26/2010 RAE CASHRAFAL PARDO APRN N 753.12 POLYCYSTIC KIDNEY 11/26/2010 RAE CASHRAFAL PARDO APRN N 791.0 PROTEINURIA 11/26/2010 RAE CASHRAFAL PARDO APRN N V25.09 Gynecologic Services Contraceptive General Counseling 11/26/2010 BIB SHIN DDS 427.89 Other Specified Cardiac Dysrhythmias 11/26/2010 BIB SHIN DDS 753.12 POLYCYSTIC KIDNEY 11/26/2010 BIB SHIN DDS 791.0 PROTEINURIA 11/26/2010 BIB SHIN DDS V25.09 Gynecologic Services Contraceptive General Counseling 11/26/2010 WIN SALGADO APRNSIE E 427.89 Other Specified Cardiac Dysrhythmias 11/26/2010 DAMIAN WINCHESTER YOVANNY E 753.12 POLYCYSTIC KIDNEY 11/26/2010 HELLPHAM WINCHESTER, YOVANNY E 791.0 PROTEINURIA 11/26/2010 HELLPHAM WINCHESTER, YOVANNY E V25.09 Gynecologic Services Contraceptive General Counseling 11/26/2010 HELLPHAM WINC[place]STER YOVANNY E 427.89 Other Specified Cardiac Dysrhythmias 11/26/2010 HELLPHAM WINCHESTER, YOVANNY E 753.12 POLYCYSTIC KIDNEY 11/26/2010 HELLPHAM WINCHESTER YOVANNY E 791.0 PROTEINURIA 11/26/2010 HELLPHAM WINC[place]STER YOVANNY E V25.09 Gynecologic Services Contraceptive General Counseling 11/26/2010 MICHELA BERRY APRN 427.89 Other Specified Cardiac Dysrhythmias 11/26/2010 MICHELA BERRY APRN 753.12 POLYCYSTIC KIDNEY 11/26/2010 MICHELA EBRRY APRN 791.0 PROTEINURIA 11/26/2010 MICHELA BERRY APRN V25.09 Gynecologic Services Contraceptive General Counseling 01/05/2011 401.9 ESSENTIAL HYPERTENSION 01/05/2011 599.0 Urinary Tract Infection 01/05/2011 401.9 ESSENTIAL HYPERTENSION 01/05/2011 599.0 Urinary Tract Infection 01/05/2011 401.9 ESSENTIAL HYPERTENSION 01/05/2011 599.0 Urinary Tract Infection 01/05/2011 MCKEON DO, SKYLAR K 401.9 ESSENTIAL HYPERTENSION 01/05/2011 MCKEON DO, SKYLAR K 599.0 Urinary Tract Infection 01/05/2011 DAMIAN WINCHESTER YOVANNY E 401.9 ESSENTIAL HYPERTENSION 01/05/2011 HELDEBBY WINCHESTER YOVANNY E 599.0 Urinary Tract Infection 01/05/2011 MCKEON DO, SKYLAR K 401.9 ESSENTIAL HYPERTENSION 01/05/2011 MCKEON DO, SKYLAR K 599.0 Urinary Tract Infection 01/05/2011 MICHELA BERRY APRN 401.9 ESSENTIAL HYPERTENSION 01/05/2011 MICHELA BERRY APRN 599.0 Urinary Tract Infection 01/05/2011 KYRA HOLLINGSWORTH APRN RAFAL N 401.9 ESSENTIAL HYPERTENSION 01/05/2011 RAE CASHERO ANNABELLA, RAFAL N 599.0 Urinary Tract Infection 01/05/2011 BIB SHIN DDS 401.9 ESSENTIAL HYPERTENSION 01/05/2011 BIB SHIN DDS 599.0 Urinary Tract Infection 01/05/2011 HELDEBBY WINCHESTER YOVANNY E 401.9 ESSENTIAL HYPERTENSION 01/05/2011 HELDEBBY WINCHESTER YOVANNY E 599.0 Urinary Tract Infection 01/05/2011 DAMIAN WINCHESTER YOVANNY E 401.9 ESSENTIAL HYPERTENSION 01/05/2011 DAMIAN WINCHESTER YOVANNY E 599.0 Urinary Tract Infection 01/05/2011 MICHELA BERRY APRN 401.9 ESSENTIAL HYPERTENSION 01/05/2011 MICHELA BERRY APRN 599.0 Urinary Tract Infection 01/07/2011 585.3 CHRONIC KIDNEY DISEASE STAGE 3 01/07/2011 585.3 CHRONIC KIDNEY DISEASE STAGE 3 01/07/2011 585.3 CHRONIC KIDNEY DISEASE STAGE 3 01/07/2011 MCKEON DO, SKYLAR K 585.3 CHRONIC KIDNEY DISEASE STAGE 3 01/07/2011 YOVANNY SALGADO APRN 585.3 CHRONIC KIDNEY DISEASE STAGE 3 01/07/2011 MCKEON DOSKYLAR K 585.3 CHRONIC KIDNEY DISEASE STAGE 3 01/07/2011 MICHELA BERRY APRN 585.3 CHRONIC KIDNEY DISEASE STAGE 3 01/07/2011 RAFAL COURTNEY APRN N 585.3 CHRONIC KIDNEY DISEASE STAGE 3 01/07/2011 BIB SHIN DDS 585.3 CHRONIC KIDNEY DISEASE STAGE 3 01/07/2011 YOVANNY SALGADO APRN 585.3 CHRONIC KIDNEY DISEASE STAGE 3 01/07/2011 YOVANNY SALGADO APRN 585.3 CHRONIC KIDNEY DISEASE STAGE 3 01/07/2011 MICHELA BERRY APRN 585.3 CHRONIC KIDNEY DISEASE STAGE 3 02/10/2011 784.0 headache 02/10/2011 784.0 headache 02/10/2011 784.0 headache 02/10/2011 MCKEON DO, SKYLAR K 784.0 headache 02/10/2011 YOVANNY SALGADO APRN E 784.0 headache 02/10/2011 MCKEON DO, SKYLAR K 784.0 headache 02/10/2011 MICHELA BERRY APRN 784.0 headache 02/10/2011 RAFAL COURTNEY APRN N 784.0 headache 02/10/2011 BIB SHIN DDS 784.0 headache 02/10/2011 YOVANNY SALGADO APRN E 784.0 headache 02/10/2011 YOVANNY SALGADO APRN 784.0 headache 02/10/2011 MICHELA BERRY APRN 784.0 headache 03/10/2011 110.5 DERMATOPHYTOSIS TINEA CORPORIS 03/10/2011 626.2 MENORRHAGIA 03/10/2011 110.5 DERMATOPHYTOSIS TINEA CORPORIS 03/10/2011 626.2 MENORRHAGIA 03/10/2011 110.5 DERMATOPHYTOSIS TINEA CORPORIS 03/10/2011 626.2 MENORRHAGIA 03/10/2011 MCKEON DO, SKYLAR K 110.5 DERMATOPHYTOSIS TINEA CORPORIS 03/10/2011 MCKEON DO, SKYLAR K 626.2 MENORRHAGIA 03/10/2011 YOVANNY SALGADO APRN E 110.5 DERMATOPHYTOSIS TINEA CORPORIS 03/10/2011 WIN SALGADO APRNSIE E 626.2 MENORRHAGIA 03/10/2011 MCKEON DO, SKYLAR K 110.5 DERMATOPHYTOSIS TINEA CORPORIS 03/10/2011 MCKEON DO, SKYLAR K 626.2 MENORRHAGIA 03/10/2011 MICHELA BERRY APRN 110.5 DERMATOPHYTOSIS TINEA CORPORIS 03/10/2011 MICHELA BERRY APRN 626.2 MENORRHAGIA 03/10/2011 RAFAL COURTNEY APRN N 110.5 DERMATOPHYTOSIS TINEA CORPORIS 03/10/2011 RAFAL COURTNEY APRN N 626.2 MENORRHAGIA 03/10/2011 BIB SHIN DDS 110.5 DERMATOPHYTOSIS TINEA CORPORIS 03/10/2011 BIB SHIN DDS 626.2 MENORRHAGIA 03/10/2011 YOVANNY SALGADO APRN E 110.5 DERMATOPHYTOSIS TINEA CORPORIS 03/10/2011 WIN SALGADO APRNSIE E 626.2 MENORRHAGIA 03/10/2011 WIN SALGADO APRNSIE E 110.5 DERMATOPHYTOSIS TINEA CORPORIS 03/10/2011 WIN SALGADO APRNSIE E 626.2 MENORRHAGIA 03/10/2011 MICHELA BERRY APRN 110.5 DERMATOPHYTOSIS TINEA CORPORIS 03/10/2011 MICHELA BERRY APRN 626.2 MENORRHAGIA 04/07/2011 692.9 DERMATITIS 04/07/2011 692.9 DERMATITIS 04/07/2011 692.9 DERMATITIS 04/07/2011 WIN MCKEON DOA K 692.9 DERMATITIS 04/07/2011 WIN SALGADO APRNSIE E 692.9 DERMATITIS 04/07/2011 SKYLAR MCKEON DO 692.9 DERMATITIS 04/07/2011 MICHELA BERRY APRN 692.9 DERMATITIS 04/07/2011 RAFAL COURTNEY APRN N 692.9 DERMATITIS 04/07/2011 KIP ERWIN, BIB Longo 692.9 DERMATITIS 04/07/2011 YOVANNY SALGADO APRN 692.9 DERMATITIS 04/07/2011 YOVANNY SALGADO APRN 692.9 DERMATITIS 04/07/2011 MICHELA BERRY APRN 692.9 DERMATITIS 04/22/2011 574.10 CHOLELITHIASIS WITH CHOLECYSTITIS 04/22/2011 574.10 CHOLELITHIASIS WITH CHOLECYSTITIS 04/22/2011 574.10 CHOLELITHIASIS WITH CHOLECYSTITIS 04/22/2011 SKYLAR MCKEON DO 574.10 CHOLELITHIASIS WITH CHOLECYSTITIS 04/22/2011 YOVANNY SALGADO APRN 574.10 CHOLELITHIASIS WITH CHOLECYSTITIS 04/22/2011 SKYLAR MCKEON DO 574.10 CHOLELITHIASIS WITH CHOLECYSTITIS 04/22/2011 MICHELA BERRY APRN 574.10 CHOLELITHIASIS WITH CHOLECYSTITIS 04/22/2011 RAFAL COURTNEY APRN 574.10 CHOLELITHIASIS WITH CHOLECYSTITIS 04/22/2011 KIP ERWIN, BIB Longo 574.10 CHOLELITHIASIS WITH CHOLECYSTITIS 04/22/2011 YOVANNY SALGADO APRN 574.10 CHOLELITHIASIS WITH CHOLECYSTITIS 04/22/2011 YOVANNY SALGADO APRN 574.10 CHOLELITHIASIS WITH CHOLECYSTITIS 04/22/2011 MICHELA BERRY APRN 574.10 CHOLELITHIASIS WITH CHOLECYSTITIS 05/06/2011 300.00 anxiety 05/06/2011 599.0 URINARY TRACT INFECTION 05/06/2011 300.00 anxiety 05/06/2011 599.0 URINARY TRACT INFECTION 05/06/2011 300.00 anxiety 05/06/2011 599.0 URINARY TRACT INFECTION 05/06/2011 SKYLAR MCKEON DO 300.00 anxiety 05/06/2011 SKYLAR MCKEON DO 599.0 URINARY TRACT INFECTION 05/06/2011 DAMIAN WINCHESTER YOVANNY E 300.00 anxiety 05/06/2011 [facility] YOVANNY E 599.0 URINARY TRACT INFECTION 05/06/2011 MCKEON DOWINA K 300.00 anxiety 05/06/2011 MCKEON DO, SKYLAR K 599.0 URINARY TRACT INFECTION 05/06/2011 MICHELA BERRY APRN 300.00 anxiety 05/06/2011 MICHELA BERRY APRN 599.0 URINARY TRACT INFECTION 05/06/2011 RAESAMANTA MONCADA APRNCY N 300.00 anxiety 05/06/2011 RAE CASHERO DOUGH MIXER OPERATOR, RAFAL N 599.0 URINARY TRACT INFECTION 05/06/2011 KIP DDSBIB 300.00 anxiety 05/06/2011 KIP BEYERSBIB 599.0 URINARY TRACT INFECTION 05/06/2011 WIN SALGADO APRNSIE E 300.00 anxiety 05/06/2011 [facility] NATH APRNSIE E 599.0 URINARY TRACT INFECTION 05/06/2011 DAMIAN WINC[place]STER YOVANNY E 300.00 anxiety 05/06/2011 [facility] YOVANNY E 599.0 URINARY TRACT INFECTION 05/06/2011 MICHELA BERRY APRN 300.00 anxiety 05/06/2011 MICHELA BERRY APRN 599.0 URINARY TRACT INFECTION 08/12/2012 KOREY KNIGHT, ERIK Reyes Ot 276.51 DEHYDRATION 08/12/2012 ERIK NAIR MD Ot 280.9 IRON DEFIC ANEMIA NOS 08/12/2012 ERIK NAIR MD Ot 593.9 RENAL URETERAL DIS NOS 08/12/2012 ERIK NAIR MD Ot 599.0 URIN TRACT INFECTION NOS 08/12/2012 ERIK NAIR MD Ot 620.2 OVARIAN CYST NEC/NOS 08/12/2012 ERIK NAIR MD Ot 753.12 POLYCYSTIC KIDNEY, UNSPECIFIED TYPE 09/05/2012 620.2 OVARIAN CYST RIGHT 09/05/2012 620.2 OVARIAN CYST RIGHT 09/05/2012 SKYLAR MCKEON DO K 620.2 OVARIAN CYST RIGHT 09/05/2012 YOVANNY SALGADO APRN E 620.2 OVARIAN CYST RIGHT 09/05/2012 MCKEON DO, SKYLAR K 620.2 OVARIAN CYST RIGHT 09/05/2012 MICHELA BERRY APRN 620.2 OVARIAN CYST RIGHT 09/05/2012 RAFAL COURTNEY APRN N 620.2 OVARIAN CYST RIGHT 09/05/2012 KIP ERWIN, BIB Longo 620.2 OVARIAN CYST RIGHT 09/05/2012 YOVANNY SALGADO APRN E 620.2 OVARIAN CYST RIGHT 09/05/2012 YOVANNY SALGADO APRN E 620.2 OVARIAN CYST RIGHT 09/05/2012 MICHELA BERRY APRN 620.2 OVARIAN CYST RIGHT 03/01/2013 MCKEON DO, SKYLAR K 789.09 flank pain right 03/01/2013 YOVANNY SALGADO APRN E 789.09 flank pain right 03/01/2013 MCKEON DO, SKYLAR K 789.09 flank pain right 03/01/2013 MICHELA BERRY APRN 789.09 flank pain right 03/01/2013 RAFAL COURTNEY APRN N 789.09 flank pain right 03/01/2013 BIB SHIN DDS 789.09 flank pain right 03/01/2013 YOVANNY SALGADO APRN E 789.09 flank pain right 03/01/2013 YOVANNY SALGADO APRN E 789.09 flank pain right 03/01/2013 IMCHELA BERRY APRN 789.09 flank pain right 06/27/2013 RAFAL COURTNEY APRN N 296.90 UNSPECIFIED EPISODIC MOOD DISORDER 06/27/2013 RAFAL COURTNEY APRN N 380.10 INFECTIVE OTITIS EXTERNA UNSPECIFIED 06/27/2013 BIB SHIN DDS 296.90 UNSPECIFIED EPISODIC MOOD DISORDER 06/27/2013 BIB SHIN DDS 380.10 INFECTIVE OTITIS EXTERNA UNSPECIFIED 06/27/2013 YOVANNY SALGADO APRN E 296.90 UNSPECIFIED EPISODIC MOOD DISORDER 06/27/2013 YOVANNY SALGADO APRN E 380.10 INFECTIVE OTITIS EXTERNA UNSPECIFIED 06/27/2013 YOVANNY SALGADO APRN E 296.90 UNSPECIFIED EPISODIC MOOD DISORDER 06/27/2013 YOVANNY SALGADO APRN E 380.10 INFECTIVE OTITIS EXTERNA UNSPECIFIED 06/27/2013 MICHELA BERRY APRN 296.90 UNSPECIFIED EPISODIC MOOD DISORDER 06/27/2013 MICHELA BERRY APRN 380.10 INFECTIVE OTITIS EXTERNA UNSPECIFIED 08/13/2013 YOVANNY SALGADO APRN E 463 ACUTE TONSILLITIS 08/13/2013 JENNIYOVANNY NATH APRN E 787.91 DIARRHEA 08/13/2013 JENNIYOVANNY NATH APRN E 789.00 ABDOMINAL PAIN UNSPECIFIED SITE 08/13/2013 MICHELA BERRY APRN 463 ACUTE TONSILLITIS 08/13/2013 MICHELA BERRY APRN 787.91 DIARRHEA 08/13/2013 MICHELA BERRY APRN 789.00 ABDOMINAL PAIN UNSPECIFIED SITE 09/04/2013 MICHELA BERRY APRN 911.4 SUPERFICIAL INJ NONVENOMOUS INSECT BITE ON ABDOMINAL WALL 10/10/2017 MADELIN PARKER APRN Ot D63.1 ANEMIA IN CHRONIC KIDNEY DISEASE 10/10/2017 MADELIN PARKER APRN Ot N18.9 CHRONIC KIDNEY DISEASE, UNSPECIFIED 10/10/2017 MADELIN PARKER APRN Ot R10.9 UNSPECIFIED ABDOMINAL PAIN 10/10/2017 MADELIN PARKER APRN Ot Z88.6 ALLERGY STATUS TO ANALGESIC AGENT STATUS 10/10/2017 MADELIN PARKER APRN Ot Z98.51 TUBAL LIGATION STATUS 10/12/2017 MADELIN PARKER APRN Ot D63.1 ANEMIA IN CHRONIC KIDNEY DISEASE 10/12/2017 MADELIN PARKER APRN Ot N18.9 CHRONIC KIDNEY DISEASE, UNSPECIFIED 10/12/2017 MADELIN PARKER APRN Ot R10.9 UNSPECIFIED ABDOMINAL PAIN 10/12/2017 MADELIN PARKER APRN Ot Z88.6 ALLERGY STATUS TO ANALGESIC AGENT STATUS 10/12/2017 MADELIN PARKER APRN Ot Z98.51 TUBAL LIGATION STATUS Procedures Code Description Performed By Performed On [facility] Jaime Hernandez 08/11/2012 23484 ROUTINE VENIPUNCTURE 09/05/2012 04320 THERAPUTIC INJ SQ/IM 09/05/2012 J1885 TORADOL INJ 09/05/2012 63651 UA LONG DIP 09/05/2012 01348 RENAL PROFILE 09/05/2012 75245 CBC 09/05/2012 08257 CULTURE URINE 09/05/2012 36886 ROUTINE VENIPUNCTURE 10/04/2012 48092 RENAL PROFILE 10/04/2012 75138 ROUTINE VENIPUNCTURE 03/01/2013 75331 UA LONG DIP 03/01/2013 65621 MICRO ALBUMIN-IN HOUSE 03/01/2013 81183 CMP 03/01/2013 21451 LIPID PANEL 03/01/2013 88867 MICROALBUMIN 03/01/2013 67955 AMYLASE 03/01/2013 64955 LIPASE 03/01/2013 84827 CBC 03/01/2013 96103 OXIMETRY 03/01/2013 ANEMIAANA ANEMIA ANALYZER 03/01/2013 NEPHROLOG MARILYN BRENNER 03/01/2013 PRO/CRE URINE PROTEIN TO CREATNINE RATIO 03/01/2013 81600 UA LONG DIP 04/28/2013 67229 UA LONG DIP 05/12/2013 46406 THER/PROPH/DIAG IV INF INIT 05/12/2013 J7030 NORMAL SALINE SOLUTION INFUS 05/12/2013 54193 ROUTINE VENIPUNCTURE 05/17/2013 24903 CMP 05/17/2013 40694 UA LONG DIP 07/28/2013 87226 CULTURE URINE 07/28/2013 13268 CULTURE URINE 08/01/2013 21269 STREP A (IN-HOUSE) 08/13/2013 55554 UA LONG DIP 08/13/2013 Results Test Result Range Complete blood count (CBC) with automated white blood cell (WBC) differential - 10/10/17 16:04 Blood leukocytes automated count (number/volume) 8.6 10*3/uL 4.3-11.0 Blood erythrocytes automated count (number/volume) 3.83 10*6/uL 4.35-5.85 Venous blood hemoglobin measurement (mass/volume) 8.6 g/dL 11.5-16.0 Blood hematocrit (volume fraction) 29 % 35-52 Automated erythrocyte mean corpuscular volume 75 [foz_us] 80-99 Automated erythrocyte mean corpuscular hemoglobin (mass per erythrocyte) 23 pg 25-34 Automated erythrocyte mean corpuscular hemoglobin concentration measurement ( mass/volume) 30 g/dL 32-36 Automated erythrocyte distribution width ratio 16.8 % 10.0-14.5 Automated blood platelet count (count/volume) 396 10*3/uL 130-400 Automated blood platelet mean volume measurement 10.0 [foz_us] 7.4-10.4 Automated blood neutrophils/100 leukocytes 65 % 42-75 Automated blood lymphocytes/100 leukocytes 24 % 12-44 Blood monocytes/100 leukocytes 8 % 0-12 Automated blood eosinophils/100 leukocytes 3 % 0-10 Automated blood basophils/100 leukocytes 0 % 0-10 Blood neutrophils automated count (number/volume) 5.6 10*3 1.8-7.8 Blood lymphocytes automated count (number/volume) 2.1 10*3 1.0-4.0 Blood monocytes automated count (number/volume) 0.7 10*3 0.0-1.0 Automated eosinophil count 0.3 10*3/uL 0.0-0.3 Automated blood basophil count (count/volume) 0.0 10*3/uL 0.0-0.1 Comprehensive metabolic panel - 10/10/17 16:04 Serum or plasma sodium measurement (moles/volume) 143 mmol/L 135-145 Serum or plasma potassium measurement (moles/volume) 3.8 mmol/L 3.6-5.0 Serum or plasma chloride measurement (moles/volume) 113 mmol/L 98-107 Carbon dioxide 22 mmol/L 21-32 Serum or plasma anion gap determination (moles/volume) 8 mmol/L 5-14 Serum or plasma urea nitrogen measurement (mass/volume) 21 mg/dL 7-18 Serum or plasma creatinine measurement (mass/volume) 1.61 mg/dL 0.60-1.30 Serum or plasma urea nitrogen/creatinine mass ratio 13 NRG Serum or plasma creatinine measurement with calculation of estimated glomerular filtration rate 39 NRG Serum or plasma glucose measurement (mass/volume) 87 mg/dL 70-105 Serum or plasma calcium measurement (mass/volume) 9.1 mg/dL 8.5-10.1 Serum or plasma total bilirubin measurement (mass/volume) 0.3 mg/dL 0.1-1.0 Serum or plasma alkaline phosphatase measurement (enzymatic activity/volume) 86 U/L 40-136 Serum or plasma aspartate aminotransferase measurement (enzymatic activity/ volume) 15 U/L 5-34 Serum or plasma alanine aminotransferase measurement (enzymatic activity/volume ) 9 U/L 0-55 Serum or plasma protein measurement (mass/volume) 7.3 g/dL 6.4-8.2 Serum or plasma albumin measurement (mass/volume) 4.2 g/dL 3.2-4.5 Complete urinalysis with reflex to culture - 10/10/17 16:35 Urine color determination YELLOW NRG Urine clarity determination CLEAR NRG Urine pH measurement by test strip 6.5 5-9 Specific gravity of urine by test strip 1.010 1.016- 1.022 Urine protein assay by test strip, semi-quantitative 1+ NEGATIVE Urine glucose detection by automated test strip NEGATIVE NEGATIVE Erythrocytes detection in urine sediment by light microscopy 5+ NEGATIVE Urine ketones detection by automated test strip NEGATIVE NEGATIVE Urine nitrite detection by test strip NEGATIVE NEGATIVE Urine total bilirubin detection by test strip NEGATIVE NEGATIVE Urine urobilinogen measurement by automated test strip (mass/volume) NORMAL NORMAL Urine leukocyte esterase detection by dipstick 1+ NEGATIVE Automated urine sediment erythrocyte count by microscopy (number/high power field) [HPF] NRG Automated urine sediment leukocyte count by microscopy (number/high power field ) [HPF] NRG Bacteria detection in urine sediment by light microscopy NEGATIVE NRG Squamous epithelial cells detection in urine sediment by light microscopy 2-5 NRG Crystals detection in urine sediment by light microscopy PRESENT NRG Casts detection in urine sediment by light microscopy NONE NRG Mucus detection in urine sediment by light microscopy NEGATIVE NRG Complete urinalysis with reflex to culture NO NRG Amorphous sediment detection in urine sediment by light microscopy FEW FARAZ URATES NRG Renal epithelial cells detection in urine sediment by light microscopy NONE NRG Urine drug screening test - 10/10/17 16:35 Urine phencyclidine detection by screening method NEGATIVE NEGATIVE Urine benzodiazepines detection by screening method NEGATIVE NEGATIVE Urine cocaine detection NEGATIVE NEGATIVE Urine amphetamines detection by screening method NEGATIVE NEGATIVE Urine methamphetamine detection by screening method NEGATIVE NEGATIVE Urine cannabinoids detection by screening method NEGATIVE NEGATIVE Urine opiates detection by screening method NEGATIVE NEGATIVE Urine barbiturates detection NEGATIVE NEGATIVE Screening urine tricyclic antidepressants detection NEGATIVE NEGATIVE Urine methadone detection by screening method NEGATIVE NEGATIVE Urine oxycodone detection NEGATIVE NEGATIVE Urine propoxyphene detection NEGATIVE NEGATIVE Encounters ACCT No. Visit Date/Time Discharge Status Pt. Type Provider Facility Loc./Unit Complaint [id number] 09/04/2013 09:37:00 09/04/2013 23:59:59 [facility] Outpatient MICHELA BERRY APRN [id number] 07/28/2013 11:03:00 07/28/2013 23:59:59 [facility] Outpatient YOVANNY SALGADO APRN Mell [id number] 07/28/2013 11:03:00 07/28/2013 23:59:59 [facility] YOVANNY SALGADO APRN [id number] 07/03/2013 12:05:00 07/03/2013 23:59:59 [facility] Outpatient BIB SHIN DDS [id number] 06/27/2013 12:58:00 06/27/2013 23:59:59 [facility] Outpatient RAFAL COURTNEY APRN [id number] 05/17/2013 13:32:00 05/17/2013 23:59:59 [facility] Outpatient MICHELA BERRY APRN [id number] 05/12/2013 10:59:00 05/12/2013 23:59:59 [facility] Outpatient SKYLAR MCKEON DO [id number] 04/28/2013 12:17:00 04/28/2013 23:59:59 [facility] Outpatient DAMIAN NOBLENWARRENMell Monte [id number] 03/01/2013 10:24:00 03/01/2013 23:59:59 [facility] Outpatient SKYLAR MCKEON DO [id number] 10/04/2012 10:03:00 Document Registration [id number] 09/05/2012 10:48:00 Document Registration [id number] 08/10/2012 11:40:00 Document Registration [id number] 10/10/2017 15:33:00 10/10/2017 17:34:00 DIS Emergency MADELIN PARKER APRN [facility] ER R FLANK PAIN [id number] 08/10/2012 17:44:00 08/12/2012 12:15:00 DIS Inpatient ERIK NAIR MD [facility] SURGICAL RUQ PAIN [id number] 10/25/2017 13:30:00 10/25/2017 23:59:59 [facility] Outpatient TIKI BUTT LAC
[2017-11-21] MEDS ORDERED: LISI10TA2 PO (14:17)
[2017-11-21] MEDS ORDERED: NS IV 1000 ML 1,000 ML IV ONE (14:20)
[2017-11-21] MEDS ORDERED: fentaNYL INJECTION 100 MCG/2 ML AMP IVP STA (14:30)
[2017-11-21 14:32] LABS: BASOPHILS % (AUTO) 0 % (0-10); EOSINOPHILS # (AUTO) 0.4 10^3/uL (0.0-0.3); EOSINOPHILS % (AUTO) 4 % (0-10); HEMATOCRIT 29 % (35-52); HEMOGLOBIN 8.6 G/DL (11.5-16.0); LYMPHOCYTES # (AUTO) 2.6 X 10^3 (1.0-4.0); LYMPHOCYTES % (AUTO) 26 % (12-44); MEAN CORPUSCULAR HEMOGLOBIN 23 PG (25-34); MEAN CORPUSCULAR HGB CONC 30 G/DL (32-36); MEAN CORPUSCULAR VOLUME 75 FL (80-99); MEAN PLATELET VOLUME 10.3 FL (7.4-10.4); MONOCYTES # (AUTO) 0.6 X 10^3 (0.0-1.0); MONOCYTES % (AUTO) 6 % (0-12); NEUTROPHILS # (AUTO) 6.4 X 10^3 (1.8-7.8); NEUTROPHILS % (AUTO) 63 % (42-75); PLATELET COUNT 411 10^3/uL (130-400); RED BLOOD COUNT 3.82 10^6/uL (4.35-5.85); RED CELL DISTRIBUTION WIDTH 18.4 % (10.0-14.5); WHITE BLOOD COUNT 10.1 10^3/uL (4.3-11.0)
[2017-11-21 14:43] LABS: ALBUMIN 4.1 GM/DL (3.2-4.5); BILIRUBIN,TOTAL 0.3 MG/DL (0.1-1.0); CALCIUM 8.9 MG/DL (8.5-10.1); CREATININE SERUM 1.43 MG/DL (0.60-1.30); TOTAL PROTEIN 7.5 GM/DL (6.4-8.2)
[2017-11-21 14:58] LABS: AMYLASE 101 U/L (25-125); LIPASE 32 U/L (8-78)
--- NOTE | 2017-11-21 15:09 | ED Back Pain ---
General Chief Complaint: Back Problems Stated Complaint: LT BACK FLANK PAIN Nursing Triage Note: PT CO OF R FLANK PAIN, PT STATES HAS POLYCYSTIC DISEASE AND HX OF KIDNEY STONES. RATES PAIN 11/18 Nursing Sepsis Screen: No Definite Risk Source of Information: Patient, Other (boyfriend) Exam Limitations: No Limitations (SHANIQUA BEVERLY) History of Present Illness Date Seen by Provider: Nov 21, 2017 Time Seen by Provider: 13:55 Initial Comments Seen and evaluated. Patient with history of polycystic kidney disease and kidney stones presents to ED with right flank pain that began on 11/17/17. She describes the pain as a constant ache that frequently spikes and occasionally radiates down her left thigh. She says that she has had similar pain in the past and attempted to wait it out while increasing fluid intake. The pain continued to increase and despite increasing fluid intake she noticed decreased urination beginning the morning of 11/20/17, later that night the patient reports that she had a brief seizure witnessed by her grandmother. The pain continued to increase today and the patient began to feel lightheaded, which prompted her to come into the ED. Patient admits urinary hesitancy, decreased urinary output, and hematuria. Patient denies SOB, heart palpitations, numbness and tingling, bowel changes, incontinence, nausea and vomiting, vaginal discharge, and abdominal pain. Location: Lumbar Spine (Left), Other Timing/Duration: 3-4 Days Severity: Moderate Pain/Injury Location: Back (Left flank, left lumbar) Radiation: Upper Legs (Left thigh) Modifying Factors: Worse With Movement; Improves With Other (Tender to palpation, laying on her left side or back) Associated Symptoms: fever; No numbness in legs/feet, No tingling in legs/feet , No sensory/motor loss; lower back pain; No loss of bladder control, No loss of bowel control (SHANIQUA BEVERLY STUDENT) Timing/Duration: Changing Over Time, Getting Worse Radiation: Buttocks Method of Injury: Unknown Associated Symptoms: muscle spasms; No weakness (CHRISTINA HERRERA MD) Allergies and Home Medications Allergies Coded Allergies: ketorolac (Verified Allergy, Unknown, 10/10/17) Home Medications Lisinopril 10 Mg Tablet, 10 MG PO DAILY, (Reported) Patient Home Medication List Home Medication List Reviewed: Yes (SIRIA,SHANIQUA MED STUDENT) Home Medication List Reviewed: Yes (CHRISTINA HERRERA MD) Constitutional: chills, dizziness, fever EENTM: No blurred vision, No double vision, No vision loss ( ) Respiratory: No cough, No short of breath Cardiovascular: No chest pain, No palpitations Gastrointestinal: No constipation, No diarrhea, No nausea, No vomiting Genitourinary: decreased output; No dysuria; hematuria, hesitancy; No incontinence : No Control/STD Prophylaxis: Other (Tubal ligation) Musculoskeletal: back pain, muscle pain Psychiatric/Neurological: Anxiety, Headache, Seizure (SHANIQUA BEVERLY ) Constitutional: see HPI (CHRISTINA HERRERA MD) All Other Systems Reviewed Negative Unless Noted: Yes (CHRISTINA HERRERA MD) Past Tlgllio-Hjxzrh-Mcwszk Hx Past Med/Social Hx: Reviewed Nursing Past Med/Soc Hx (CHRISTINA HERRERA MD) Patient Social History Alcohol Use: Denies Use Recreational Drug Use: No Smoking Status: Never a Smoker 2nd Hand Smoke Exposure: No Recent Foreign Travel: No Contact w/Someone Who Travel: No Recent Infectious Disease Expo: No Physical Abuse: No Sexual Abuse: No (SHANIQUA BEVERLY) Immunizations Up To Date Date of Pneumonia Vaccine: Jan 12, 2010 (SHANIQUA BEVERLY) Seasonal Allergies Seasonal Allergies: No (SHANIQUA BEVERLY) Past Medical History Surgeries: Yes Section (Two prior sections), Tubal Ligation Respiratory: No Cardiac: Yes Hypertension (2 prior TIAs 05/13 HTN) Neurological: Yes [employer] History: Tubal Ligation UTI-Chronic, Polycystic Kidney Disease Gastrointestinal: No (poss gallbladder problems 08/10/12 adm) Musculoskeletal: No Endocrine: No Cancer: No Psychosocial: No Nursing Suicide Risk Score: 0 Integumentary: No Blood Disorders: No Adverse Reaction/Blood Tranf: No (SHANIQUA BEVERLY) Family Medical History Reviewed Nursing Family Hx (CHRISTINA HERRERA MD) Physical Exam Vital Signs Vital Signs - First Documented 11/21/17 13:50 Temp 98.0 Pulse 76 Resp 18 B/P (MAP) 145/108 (120) Pulse Ox 100 (CHRISTINA HERRERA MD) Vital Signs Capillary Refill : Less Than 3 Seconds (SIRIA,SHANIQUA MED STUDENT) Height, Weight, BMI Height: 5'7.00" Weight: 160lbs. 0oz. [id number]; BMI Method:Stated General Appearance: WD/WN, Anxious, Moderate Distress HEENT: PERRL/EOMI, TMs Normal, Normal ENT Inspection, Pharynx Normal Neck: Full Range of Motion, Normal Inspection, Non Tender, Supple Cardiovascular: Regular Rate, Rhythm, No Edema, No Gallop, No JVD, No Murmur, Normal Peripheral Pulses Respiratory: Chest Non Tender, Lungs Clear, Normal Breath Sounds, No Accessory Muscle Use, No Respiratory Distress Peripheral Pulses: 2+ Dorsalis Pedis (R), 2+ Left Dors-Pedis (L), 2+ Radial Pulses (R), 2+ Radial Pulses (L) Gastrointestinal: Normal Bowel Sounds, No Organomegaly, No Pulsatile Mass, Non Tender, Soft Back: Normal Inspection, CVA Tenderness (L) Extremity: Normal Inspection, Normal Range of Motion, Non Tender, No Pedal Edema Neurologic/Psychiatric: Alert, Oriented x3, No Motor/Sensory Deficits, Normal Mood/Affect, procedures analyst II-XII Norm as Tested Skin: Normal Color, Warm/Dry (SHANIQUA BEVERLY MED STUDENT) General Appearance: WD/WN, Anxious HEENT: PERRL/EOMI, Pharynx Normal Cardiovascular: Regular Rate, Rhythm, No Murmur Respiratory: Lungs Clear, Normal Breath Sounds Gastrointestinal: Non Tender, Soft Back: No Vertebral Tenderness, Other (tender on the left flank and left posterior Down to the buttock) Neurologic/Psychiatric: Alert, Oriented x3 Skin: Normal Color, Warm/Dry; No Ecchymosis (CHRISTINA HERRERA MD) Progress/Results/Core Measures Results/Orders Lab Results Laboratory Tests Test 11/21/17 14:04 11/21/17 15:06 Range/Units White Blood Count 10.1 4.3-11.0 10^3/uL Red Blood Count 3.82 L 4.35-5.85 10^6/uL Hemoglobin 8.6 L 11.5-16.0 G/DL Hematocrit 29 L 35-52 % Mean Corpuscular Volume 75 L 80-99 FL Mean Corpuscular Hemoglobin 23 L 25-34 PG Mean Corpuscular Hemoglobin Concent 30 L 32-36 G/DL Red Cell Distribution Width 18.4 H 10.0-14.5 % Platelet Count 411 H 130-400 10^3/uL Mean Platelet Volume 10.3 7.4-10.4 FL Neutrophils (%) (Auto) 63 42-75 % Lymphocytes (%) (Auto) 26 12-44 % Monocytes (%) (Auto) 6 0-12 % Eosinophils (%) (Auto) 4 0-10 % Basophils (%) (Auto) 0 0-10 % Neutrophils # (Auto) 6.4 1.8-7.8 X 10^3 Lymphocytes # (Auto) 2.6 1.0-4.0 X 10^3 Monocytes # (Auto) 0.6 0.0-1.0 X 10^3 Eosinophils # (Auto) 0.4 H 0.0-0.3 10^3/uL Basophils # (Auto) 0.0 0.0-0.1 10^3/uL Sodium Level 137 135-145 MMOL/L Potassium Level 4.0 3.6-5.0 MMOL/L Chloride Level 108 H 98-107 MMOL/L Carbon Dioxide Level 19 L 21-32 MMOL/L Anion Gap 10 5-14 MMOL/L Blood Urea Nitrogen 17 7-18 MG/DL Creatinine 1.43 H 0.60-1.30 MG/DL Estimat Glomerular Filtration Rate 44 BUN/Creatinine Ratio 12 Glucose Level 71 70-105 MG/DL Calcium Level 8.9 8.5-10.1 MG/DL Corrected Calcium 8.8 8.5-10.1 MG/DL Total Bilirubin 0.3 0.1-1.0 MG/DL Aspartate Amino Transf (AST/SGOT) 17 5-34 U/L Alanine Aminotransferase (ALT/SGPT) 9 0-55 U/L Alkaline Phosphatase 81 40-136 U/L C-Reactive Protein High Sensitivity 0.25 0.00-0.50 MG/DL Total Protein 7.5 6.4-8.2 GM/DL Albumin 4.1 3.2-4.5 GM/DL Amylase Level 101 25-125 U/L Lipase 32 8-78 U/L Urine Color YELLOW Urine Clarity CLEAR Urine pH 7 5-9 Urine Specific [place] 1.005 L 1.016-1.022 Urine Protein NEGATIVE NEGATIVE Urine Glucose (UA) NEGATIVE NEGATIVE Urine Ketones NEGATIVE NEGATIVE Urine Nitrite NEGATIVE NEGATIVE Urine Bilirubin NEGATIVE NEGATIVE Urine Urobilinogen NORMAL NORMAL MG/DL Urine Leukocyte Esterase NEGATIVE NEGATIVE Urine RBC (Auto) NEGATIVE NEGATIVE Urine RBC NONE /HPF Urine WBC NONE /HPF Urine Squamous Epithelial Cells 0-2 /HPF Urine Crystals NONE /LPF Urine Bacteria NEGATIVE /HPF Urine Casts NONE /LPF Urine Mucus NEGATIVE /LPF Urine Culture Indicated NO (CHRISTINA HERRERA MD) My Orders Orders - CHRISTINA HERRERA MD Cbc With Automated Diff (11/21/17 14:20) Comprehensive Metabolic Panel (11/21/17 14:20) Ua Culture If Indicated (11/21/17 14:20) Saline Lock/Iv-Start (11/21/17 14:20) Ns Iv 1000 Ml (Sodium Chloride 0.9%) (11/21/17 14:20) Hs C Reactive Protein (11/21/17 14:21) Fentanyl Injection (Sublimaze Injection (11/21/17 14:30) Amylase (11/21/17 14:30) Lipase (11/21/17 14:30) Ct Abd/Pelvis Wo(Kidney Stone) (11/21/17 14:49) (CHRISTINA HERRERA MD) Medications Given in ED Current Medications Medications Dose Ordered Sig/Brown Route Start Time Stop Time Status Last Admin Dose Admin Sodium Chloride 1,000 ml @ 0 mls/hr Q0M ONCE IV 11/21/17 14:20 11/21/17 14:22 DC 11/21/17 14:26 1,000 MLS/HR (CHRISTINA HERRERA MD) Vital Signs/I&O 11/21/17 13:50 Temp 98.0 Pulse 76 Resp 18 B/P (MAP) 145/108 (120) Pulse Ox 100 (CHRISTINA HERRERA MD) Blood Pressure Mean: 120 Progress Progress Note : Progress Note Seen and evaluated by me. I with above except as indicated. I have directed the plan of care. Patient here with left flank pain that rates from the area of the left mid back down to the buttock on the left and even down to the upper part of the leg on the left. Does have history of polycystic kidney disease. Does have some urinary tract infection symptoms. Denies vomiting. Time for IV , labs, UA and CT abdomen and pelvis given her history. Normal saline 1 L bolus and fentanyl 50 g IV ordered. Monitor patient. 1624: No acute findings. CT stable. (CHRISTINA HERRERA MD) Diagnostic Imaging Diagonstic Imaging: CT Plain Films/CT/US/NM/MRI: abdomen, pelvis [facility] REC#: [id number] PT STATUS: REG ER : 1990 PHYSICIAN: CHRISTINA HERRERA MD ADMIT DATE: 11/21/17/ER Draft Date of Exam:11/21/17 CT ABD/PELVIS WO(KIDNEY STONE) INDICATION: Left-sided abdominal pain CT of the abdomen and pelvis obtained without IV contrast COMPARISON to 10/10/2017. FINDINGS: The visualized portions of the lung bases are clear. There were no pleural fluid collections. There is no free intraperitoneal air The liver shows no focal lesion. The patient has had a cholecystectomy. The spleen, adrenals, and pancreas appear unremarkable without contrast. The kidneys again show polycystic appearance of numerous cysts of various sizes throughout both kidneys. There is no overt hemorrhagic cyst. There are a few small calcifications in both kidneys which are similar to the prior study. There is no ureteral stone or hydronephrosis. There are borderline prominent retroperitoneal nodes which are stable compared to the previous study. There is a small amount of free fluid in the pelvis which maybe physiologic. IMPRESSION: Polycystic kidneys are noted without significant change in the appearance compared to the previous study. There are a few scattered calculi in both kidneys but no ureteral stone or hydronephrosis. Mildly prominent retroperitoneal nodes appear stable compared to the previous study. There is a small amount of free fluid in the pelvis that may be physiologic. Dictated on workstation # [id number] Dict: 11/21/17 1525 Trans: 11/21/17 1534 [facility] [id number] Interpreted by: DIANE GONZALEZ MD Electronically signed by: (CHRISTINA HERRERA MD) Departure Impression Primary Impression: Left flank pain Disposition: HOME, SELF-CARE Condition: Improved Departure-Patient Inst. Decision time for Depature: 16:25 (CHRISTINA HERRERA MD) Referrals: NO,LOCAL PHYSICIAN (PCP/Family) Primary Care Physician Patient Instructions: Polycystic Kidney Disease, Radiculopathy (DC) Add. Discharge Instructions: All discharge instructions reviewed with patient and/or family. Voiced understanding. Take medications as directed. You may take Tylenol/acetaminophen 1000 mg every 8 hours as needed for pain if you're not taking the prescribed pain medicine as both have Tylenol in them. Follow-up with your Dr. in one to 2 days for recheck. Return for worse pain, fever, vomiting, weakness, breathing problems or other concerns as needed. Scripts Hydrocodone Bit/Acetaminophen (Hydrocodone/Acetaminophen 5/325mg Tablet) 1 Tab Tab 1 EACH PO Q6H PRN for PAIN-MODERATE, #8 TAB 0 Refills Prov: CHRISTINA HERRERA MD 11/21/17 SHANIQUA BEVERLY MED STUDENT Nov 21, 2017 15:09 CHRISTINA HERRERA MD Nov 21, 2017 16:17
[2017-11-21 15:10] LABS: BILIRUBIN,URINE NEGATIVE (NEGATIVE); CLARITY,URINE CLEAR; COLOR,URINE YELLOW; GLUCOSE, URINE (UA) NEGATIVE (NEGATIVE); KETONES,URINE NEGATIVE (NEGATIVE); LEUKOCYTE ESTERASE ,URINE NEGATIVE (NEGATIVE); NITRITE,URINE NEGATIVE (NEGATIVE); PH,URINE 7 (5-9); PROTEIN,URINE NEGATIVE (NEGATIVE); UROBILINOGEN,URINE NORMAL (NORMAL)
--- NOTE | 2017-11-21 15:34 | Diagnostic Imaging Report ---
INDICATION: Left-sided abdominal pain CT of the abdomen and pelvis obtained without IV contrast COMPARISON to 10/10/2017. FINDINGS: The visualized portions of the lung bases are clear. There were no pleural fluid collections. There is no free intraperitoneal air The liver shows no focal lesion. The patient has had a cholecystectomy. The spleen, adrenals, and pancreas appear unremarkable without contrast. The kidneys again show polycystic appearance of numerous cysts of various sizes throughout both kidneys. There is no overt hemorrhagic cyst. There are a few small calcifications in both kidneys which are similar to the prior study. There is no ureteral stone or hydronephrosis. There are borderline prominent retroperitoneal nodes which are stable compared to the previous study. There is a small amount of free fluid in the pelvis which maybe physiologic. IMPRESSION: Polycystic kidneys are noted without significant change in the appearance compared to the previous study. There are a few scattered calculi in both kidneys but no ureteral stone or hydronephrosis. Mildly prominent retroperitoneal nodes appear stable compared to the previous study. There is a small amount of free fluid in the pelvis that may be physiologic. Dictated by: Dictated on workstation # [id number]
[2017-11-21 15:41] LABS: BACTERIA,URINE NEGATIVE /HPF; SQUAMOUS EPITHELIAL CELL,UR 0-2 /HPF
[2017-11-21] MEDS ORDERED: ACHD5005 PO (16:30)
[2017-11-21 16:37] VITALS: BP 136/88
== END 2017-11-21 16:37 | disposition home or self-care (01) ==
LOC: EDUNIT# 13:42 → ER 13:44
DX: R10.32 Left lower quadrant pain (principal); I10 Essential (primary) hypertension; Z87.440 Personal history of urinary (tract) infections; Z86.73 Personal history of transient ischemic attack (TIA), and cerebral infarction without residual deficits; Z87.448 Personal history of other diseases of urinary system; Z87.442 Personal history of urinary calculi; Z87.59 Personal history of other complications of pregnancy, childbirth and the puerperium; Z98.51 Tubal ligation status
CPT/HCPCS: 36415; 74176; 80053; 81000; 82150; 83690; 85025; 86141

== ENCOUNTER 2022-12-25 12:01 | Emergency (ER) | payer MEDICAID ==
[~2022-12-25] VITALS: Ht 170 cm; Wt 72.5 kg
[~2022-12-25 12:01] MED LIST changes: +HYDR-4226 PO; -HYDR-757 PO; +LISI10TA25 PO
[2022-12-25] MEDS ORDERED: NS IV 1000 ML 1,000 ML IV STA (12:41)
[2022-12-25 12:52] LABS: BASOPHILS # (AUTO) 0.1 10^3/uL (0.0-0.1); BASOPHILS % (AUTO) 1 % (0-10); EOSINOPHILS # (AUTO) 2.8 10^3/uL (0.0-0.3); EOSINOPHILS % (AUTO) 20 % (0-10); HEMATOCRIT 34 % (35-52); HEMOGLOBIN 10.5 g/dL (11.5-16.0); LYMPHOCYTES # (AUTO) 2.6 10^3/uL (1.0-4.0); LYMPHOCYTES % (AUTO) 19 % (12-44); MEAN CORPUSCULAR HEMOGLOBIN 29 pg (25-34); MEAN CORPUSCULAR HGB CONC 31 g/dL (32-36); MEAN CORPUSCULAR VOLUME 93 fL (80-99); MONOCYTES # (AUTO) 0.7 10^3/uL (0.0-1.0); MONOCYTES % (AUTO) 5 % (0-12); NEUTROPHILS # (AUTO) 7.4 10^3/uL (1.8-7.8); NEUTROPHILS % (AUTO) 54 % (42-75); PLATELET COUNT 406 10^3/uL (130-400); WHITE BLOOD COUNT 13.6 10^3/uL (4.3-11.0)
--- NOTE | 2022-12-25 12:52 | ED GU-Female ---
General Chief Complaint: - Reproductive Stated Complaint: UNABLE TO URINATE/KIDNEY DISEASE Nursing Triage Note: Pt presents to ER with complaints of left flank pain and urinary incontinence. Pt reports that she does not feel the urge to urinate. Pt reports hx of PKD Source: patient, family Exam Limitations: no limitations (AMANDO PENNINGTON) History of Present Illness Date Seen by Provider: Dec 25, 2022 Time Seen by Provider: 12:30 Initial Comments 32yo F with PMH of PCOS, renal failure, nephrolithiasis requiring stenting in R kidney, and recurrent pyelonephritis presents to the ED with mother with c/o new onset urinary retention and L flank pain that started 1 week ago and worsened the last 3 days. Pt states that she has been experiencing a decreased urge to urinate and difficulty voiding. Pt also notes what she believes to be some urinary incontinence, stating that for the last 3 days she has noticed a small amount of dark blood and urine in her underwear. Pt states her L flank pain is an 8/10, constant, crampy pain that radiates to LLQ. Pain is exacerbated by movement, laying on her flank, and after urination. When exacerbated pt states that cramps become more severe, rating it a 10/10, and "feels like I have a corset on". Severe pain is often accompanied by nausea. Pt also notes some associated abd bloating and intermittent chills. Pt states that pain is similar to when she had an obstructive kidney stone in R kidney a few years ago. Pt has been taking 5mg hydrocodone that she has as a prn prescription for her PCOS, with no relief. Last dose was last night around 7pm. In room, pt experienced an episode of "chills" in which she started to cry, yell about being warm, and try to rip her shirt off. Episode lasted ~1 minute, after which pt returned to normal and stated she then felt cold. Pt's LMP was ~2.5weeks ago. Denies dysuria, constipation, new/worsening diarrhea, SOA, CP, fever, cough, vaginal discharge, and vomiting. [facility] [place], last appointment 6mos ago, normally goes annually. Timing/Duration: week, getting worse Severity/Quality: moderate Location: left flank Radiation: LLQ Activities at Onset: none Prior Genitourinary Problems: similar symptoms (kidney stone R side a few years ago) Modifying Factors: Improves With Lying down, Improves With Urinating Associated Symptoms: abdominal pain (radiation to LLQ), fever/chills (chills, denies fever), loss of bladder control, nausea/vomiting (nausea with severe pain, no vomiting); No urinary frequency (AMANDO PENNINGTON) Allergies and Home Medications Allergies Coded Allergies: Sulfa (Sulfonamide Antibiotics) (Verified Allergy, Unknown, Vomiting, 12/25/22) ketorolac (Verified Allergy, Unknown, 10/10/17) Patient Home Medication List Home Medication List Reviewed: Yes (AMANDO PENNINGTON) Home Medication List Reviewed: Yes (USAMA ALBERTO MD) Hydrocodone Bit/Acetaminophen (Lortab 5 Mg Tablet) 1 Tab Tab, 1 EACH PO Q6H PRN for PAIN-MODERATE Prescribed by: CHRISTINA HERRERA on 11/21/17 1630 Lisinopril (Lisinopril) 10 Mg Tablet, 10 MG PO DAILY, (Reported) Entered as Reported by: KRISHNA GUERRERO on 11/21/17 1417 Review of Systems Review of Systems Constitutional: chills; No fever EENTM: no symptoms reported Respiratory: no symptoms reported Cardiovascular: no symptoms reported Gastrointestinal: LLQ (radiation from L flank) Genitourinary: denies burning, denies discharge, denies dysuria, denies frequency; flank pain (L flank), hematuria, incontinence; denies urgency Musculoskeletal: no symptoms reported Skin: no symptoms reported Psychiatric/Neurological: No Symptoms Reported Endocrine: No Symptoms Reported Hematologic/Lymphatic: No Symptoms Reported (AMANDO PENNINGTON) All Other Systemes Reviewed Negative Unless Noted: Yes (AMANDO PENNINGTON) Past Clbewtw-[id number] Hx Patient Social History Tobacco Use?: No Substance use?: Yes Substance type: Marijuana Alcohol Use?: No Pt feels they are or have been: No (AMANDO PENNINGTON) Immunizations Up To Date Influenza Vaccine Up-to-Date: No; Not Current (AMANDO PENNINGTON) Seasonal Allergies Seasonal Allergies: No (AMANDO PENNINGTON) Past Medical History Surgery/Hospitalization HX: Polycystic kidney disease, kidney stones, seizures, TIA, HTN, R ureteral stent placement, anemia, sepsis , Tubal ligation, [place] Surgeries: Yes (R ureteral stent placement) Section (x2), Gallbladder, Tubal Ligation Respiratory: No Cardiac: Yes Hypertension 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: Tubal Ligation Kidney Infection, Kidney Stones, Renal Failure, Polycystic Kidney Disease Gastrointestinal: Yes Gall Bladder Disease Musculoskeletal: No Endocrine: No Cancer: No Psychosocial: No Integumentary: No Blood Disorders: No Adverse Reaction/Blood Tranf: No (AMANDO PENNINGTON) Family Medical History No Pertinent Family Hx (AMANDO PENNINGTON) Physical Exam Vital Signs Vital Signs - First Documented 12/25/22 12:12 Temp 36.8 Pulse 90 Resp 18 B/P (MAP) 162/118 (133) Pulse Ox 98 O2 Delivery Room Air (USAMA ALBERTO MD) Vital Signs Capillary Refill : Less Than 3 Seconds (AMANDO PENNINGTON) Height, Weight, BMI Height: 5'7.00" Weight: 160lbs. 0oz. 72.314619ob; 25.00 BMI Method:Stated General Appearance: WD/WN, moderate distress (secondary to pain) HEENT: PERRL/EOMI Cardiovascular: regular rate, rhythm, no murmur Respiratory: lungs clear, normal breath sounds, no respiratory distress, no ac cessory muscle use Gastrointestinal: normal bowel sounds, soft, tenderness (LLQ and mild suprapubic tenderness) Back: CVA tenderness (L) Extremities: non-tender, no pedal edema, no calf tenderness Neurologic/Psychiatric: alert, normal mood/affect, oriented x 3 Skin: normal color, diaphoresis, damp Lymphatic: no adenopathy (AMANDO PENNINGTON) Progress/Results/Core Measures Suspected Sepsis SIRS Temperature: Pulse: 90 Respiratory Rate: 18 Blood Pressure 162 /118 Mean: 133 (AMANDO PENNINGTON) Results/Orders Lab Results Laboratory Tests Test 12/25/22 12:35 12/25/22 12:43 Range/Units White Blood Count 13.6 H 4.3-11.0 10^3/uL Red Blood Count 3.68 L 3.80-5.11 10^6/uL Hemoglobin 10.5 L 11.5-16.0 g/dL Hematocrit 34 L 35-52 % Mean Corpuscular Volume 93 80-99 fL Mean Corpuscular Hemoglobin 29 25-34 pg Mean Corpuscular Hemoglobin Concent 31 L 32-36 g/dL Red Cell Distribution Width 13.4 10.0-14.5 % Platelet Count 406 H 130-400 10^3/uL Mean Platelet Volume 10.0 9.0-12.2 fL Immature Granulocyte % (Auto) 1 % Neutrophils (%) (Auto) 54 42-75 % Lymphocytes (%) (Auto) 19 12-44 % Monocytes (%) (Auto) 5 0-12 % Eosinophils (%) (Auto) 20 H 0-10 % Basophils (%) (Auto) 1 0-10 % Neutrophils # (Auto) 7.4 1.8-7.8 10^3/uL Lymphocytes # (Auto) 2.6 1.0-4.0 10^3/uL Monocytes # (Auto) 0.7 0.0-1.0 10^3/uL Eosinophils # (Auto) 2.8 H 0.0-0.3 10^3/uL Basophils # (Auto) 0.1 0.0-0.1 10^3/uL Immature Granulocyte # (Auto) 0.1 0.0-0.1 10^3/uL Neutrophils % (Manual) 54 % Lymphocytes % (Manual) 19 % Monocytes % (Manual) 6 % Eosinophils % (Manual) 19 % Basophils % (Manual) 2 % Band Neutrophils 0 % Blood Morphology Comment NORMAL Sodium Level 142 135-145 MMOL/L Potassium Level 4.5 3.6-5.0 MMOL/L Chloride Level 109 H 98-107 MMOL/L Carbon Dioxide Level 23 21-32 MMOL/L Anion Gap 10 5-14 MMOL/L Blood Urea Nitrogen 27 H 7-18 MG/DL Creatinine 1.81 H 0.60-1.30 MG/DL Estimat Glomerular Filtration Rate 38 BUN/Creatinine Ratio 15 Glucose Level 94 70-105 MG/DL Calcium Level 9.1 8.5-10.1 MG/DL Urine Color YELLOW Urine Clarity CLEAR Urine pH 7.0 5-9 Urine Specific [place] 1.015 L 1.016-1.022 Urine Protein NEGATIVE NEGATIVE Urine Glucose (UA) NEGATIVE NEGATIVE Urine Ketones NEGATIVE NEGATIVE Urine Nitrite NEGATIVE NEGATIVE Urine Bilirubin NEGATIVE NEGATIVE Urine Urobilinogen 0.2 < = 1.0 MG/DL Urine Leukocyte Esterase 1+ H NEGATIVE Urine RBC (Auto) NEGATIVE NEGATIVE Urine RBC NONE /HPF Urine WBC 5-10 H /HPF Urine Squamous Epithelial Cells NONE /HPF Urine Crystals NONE /LPF Urine Bacteria NEGATIVE /HPF Urine Casts NONE /LPF Urine Mucus NEGATIVE /LPF Urine Culture Indicated NO Urine Test NEGATIVE NEGATIVE Urine Opiates Screen NEGATIVE NEGATIVE Urine Oxycodone Screen NEGATIVE NEGATIVE Urine Methadone Screen NEGATIVE NEGATIVE Urine Propoxyphene Screen NEGATIVE NEGATIVE Urine Barbiturates Screen NEGATIVE NEGATIVE Ur Tricyclic Antidepressants Screen NEGATIVE NEGATIVE Urine Phencyclidine Screen NEGATIVE NEGATIVE Urine Amphetamines Screen NEGATIVE NEGATIVE Urine Methamphetamines Screen NEGATIVE NEGATIVE Urine Benzodiazepines Screen NEGATIVE NEGATIVE Urine Cocaine Screen NEGATIVE NEGATIVE Urine Cannabinoids Screen NEGATIVE NEGATIVE (USAMA ALBERTO MD) My Orders Orders - USAMA ALBERTO MD Urine Bedside (12/25/22 12:41) Cbc With Automated Diff (12/25/22 12:41) Basic Metabolic Panel (12/25/22 12:41) Ua Culture If Indicated (12/25/22 12:41) Ed Iv/Invasive Line Start (12/25/22 12:41) Ns Iv 1000 Ml (Ns Iv 1000 Ml) (12/25/22 12:41) Hcg,Qualitative Urine (12/25/22 12:47) Manual Differential (12/25/22 12:35) Fentanyl Injection (Fentanyl Injection (12/25/22 13:45) Drug Screen Stat (Urine) (12/25/22 13:41) Ct Abd/Pelvis Wo(Kidney Stone) (12/25/22 13:42) Diphenhydramine Injection (Diphenhydram (12/25/22 13:45) (USAMA ALBERTO MD) Medications Given in ED (USAMA ALBERTO MD) Vital Signs/I&O (USAMA ALBERTO MD) Vital Signs/I&O Capillary Refill : Less Than 3 Seconds (AMANDO PENNINGTON) Blood Pressure Mean: 133 Progress Note : Time: 14:47 Progress Note Patient seen and evaluated by me. I have reviewed the medical student's documentation and agree. Pertinent physical exam findings include - WDWN female who is constantly rubbing at her face, scratching at her arms and chest - pruritic. VS - she is a bit hypertensive. Abdominal exam is benign. She does have mild left CVA tenderness. Otherwise no acute findings on exam. DDx based on H&P includes pyelonephritis, kidney stone, musculoskeletal pain. Patient's labs independently reivewed and interpreted by me. Her CBC shows a mildly elevated total WBC count of 13.6 with 20% eosinophilia, Chem shows elevated Creatinine of 1.81 and BUN of 21. This seems to be about the patient's baseline. Her urine has 5-10 WBC per hpf with 1+ LE, no bacteria or nitrites. UDS is negative. Patient is treated with 50mcg of fentanyl and a liter of fluids. Also given 12.5mg IV benadryl. Her CT renal stone protocol was negative for any acute pathology - a few "punctate" renal stones on the right and stable ppolycyctic kidneys as read by the radiologist. After fluids and medications patient states she was feeling better. I advised follow up with her PCP. As she is asymptomatic of UTI will hold off on any antibiotics. SHe is comfortable with this plan of care. No concerning findings for pyelonephritis. No clinical suspicion of any other acute intra-abdominal pathology. Return precautions provided in both verbal and written format. Patient is improved at discharge. (USAMA ALBERTO MD) Diagnostic Imaging Diagonstic Imaging: CT Comments [facility], [place] NAME: HARRIETT MOORE [facility] REC#: [id number] PT STATUS: REG ER : 1990 PHYSICIAN: USAMA ALBERTO MD ADMIT DATE: 12/25/22/ER Signed Date of Exam:12/25/22 CT ABD/PELVIS WO(KIDNEY STONE) CT ABD/PELVIS WO(KIDNEY STONE). TECHNIQUE: Unenhanced CT imaging of the abdomen and pelvis was performed. 2-D reformats are created and submitted for interpretation. Automatic exposure controls were utilized to optimize patient dose. INDICATION: Flank pain. Kidney stone. COMPARISON: 11/21/2022. FINDINGS: Lower chest: The lung bases are clear. No pericardial or pleural effusion. Peritoneum: No free intraperitoneal air or fluid. Liver and biliary system: Unenhanced liver is normal. Cholecystectomy. No pathologic biliary duct dilatation. Spleen and Pancreas: Spleen is normal. Unenhanced pancreas is grossly normal. Adrenals: Normal. tract: Numerous bilateral renal cysts are unchanged and most compatible with polycystic kidney disease. There are a few punctate nonobstructing renal stones on the right side. No ureteral stones or hydronephrosis on either side. Urinary bladder is normally filled. Uterus is normal in appearance. Right ovarian 4.7 x 2.6 cm cyst. GI tract: Stomach is filled with fluid and food debris. No bowel obstruction. No pericolonic inflammatory changes. Appendix is normal. Vasculature and Lymph nodes: Normal caliber aorta. No abdominal or pelvic lymphadenopathy. Musculoskeletal: No concerning osseous lesion. IMPRESSION: Unchanged bilateral polycystic kidneys without obstruction. A few punctate right-sided renal stones are stable in position since prior exam. Dictated by: Dictated on workstation # [id number] Dict: 12/25/22 1409 Trans: 12/25/22 1426 [id number] Interpreted by: ROBERTA HOGAN MD Electronically signed by: ROBERTA HOGAN MD 12/25/22 142 (USAMA ALBERTO MD) Departure Impression Primary Impression: Flank pain Disposition: 01 HOME, SELF-CARE Condition: Improved Departure-Patient Inst. Decision time for Depature: 14:47 (USAMA ALBERTO MD) Referrals: NO,LOCAL PHYSICIAN (PCP/Family) Primary Care Physician Patient Instructions: Flank Pain (DC) Add. Discharge Instructions: Use an over the lidocaine patch to the left flank for pain - please follow packaging instructions. Extra strength tylenol 2 tablets every 6 hours for pain as needed. If you develop fever, burning with urination, vomiting or any other concerning symptoms - please return to the Emergency Department for re-evaluation. Your urine culture will result in 2-3 days and we will contact you if we need to add antibiotics. Verification and Attestation of Medical Student E/M Service A medical student performed and documented this service in my presence. I reviewed and verified all information documented by the medical student and made modifications to such information, when appropriate. I personally performed the physical exam and medical decision making. Usama Alberto Dec 25, 2022,14:53 (USAMA ALBERTO MD) AMANDO PENNINGTON Dec 25, 2022 12:52 USAMA ALBERTO MD Dec 25, 2022 14:51
[2022-12-25 13:03] LABS: POTASSIUM 4.5 MMOL/L (3.6-5.0)
[2022-12-25 13:04] LABS: CALCIUM 9.1 MG/DL (8.5-10.1)
[2022-12-25 13:09] LABS: CREATININE SERUM 1.81 MG/DL (0.60-1.30)
[2022-12-25 13:12] LABS: BILIRUBIN,URINE NEGATIVE (NEGATIVE); CLARITY,URINE CLEAR; COLOR,URINE YELLOW; GLUCOSE, URINE (UA) NEGATIVE (NEGATIVE); KETONES,URINE NEGATIVE (NEGATIVE); LEUKOCYTE ESTERASE ,URINE 1+ (NEGATIVE); NITRITE,URINE NEGATIVE (NEGATIVE); PROTEIN,URINE NEGATIVE (NEGATIVE)
[2022-12-25 13:13] LABS: BACTERIA,URINE NEGATIVE /HPF
[2022-12-25 13:29] LABS: NEUTROPHILS % (MANUAL) 54 %
[2022-12-25 13:30] LABS: BAND NEUTROPHILS 0 %; BASOPHILS % (MANUAL) 2 %; EOSINOPHILS % (MANUAL) 19 %; LYMPHOCYTES % (MANUAL) 19 %; MONOCYTES % (MANUAL) 6 %; RBC MORPH NORMAL
[2022-12-25] MEDS ORDERED: diphenhydrAMINE INJ 50 MG/ML VIAL IVP ONE (13:45)
[2022-12-25] MEDS ORDERED: fentaNYL INJECTION 100 MCG/2 ML VIAL IVP ONE (13:45)
[2022-12-25 14:04] LABS: AMPHETAMINE SCREEN, URINE NEGATIVE (NEGATIVE); BARBITURATE SCREEN URINE NEGATIVE (NEGATIVE); BENZODIAZEPINES SCREEN URINE NEGATIVE (NEGATIVE); CANNABINOID SCREEN, URINE NEGATIVE (NEGATIVE); COCAINE SCREEN URINE NEGATIVE (NEGATIVE); METHADONE STAT NEGATIVE (NEGATIVE); OPIATE SCREEN URINE NEGATIVE (NEGATIVE); OXYCODONE STAT NEGATIVE (NEGATIVE); PROPOXYPHENE STAT NEGATIVE (NEGATIVE); TRICYCLIC ANTIDEPRESSANTS SCRE NEGATIVE (NEGATIVE)
--- NOTE | 2022-12-25 14:15 | Diagnostic Imaging Report ---
CT ABD/PELVIS WO(KIDNEY STONE). TECHNIQUE: Unenhanced CT imaging of the abdomen and pelvis was performed. 2-D reformats are created and submitted for interpretation. Automatic exposure controls were utilized to optimize patient dose. INDICATION: Flank pain. Kidney stone. COMPARISON: 11/21/2022. FINDINGS: Lower chest: The lung bases are clear. No pericardial or pleural effusion. Peritoneum: No free intraperitoneal air or fluid. Liver and biliary system: Unenhanced liver is normal. Cholecystectomy. No pathologic biliary duct dilatation. Spleen and Pancreas: Spleen is normal. Unenhanced pancreas is grossly normal. Adrenals: Normal. tract: Numerous bilateral renal cysts are unchanged and most compatible with polycystic kidney disease. There are a few punctate nonobstructing renal stones on the right side. No ureteral stones or hydronephrosis on either side. Urinary bladder is normally filled. Uterus is normal in appearance. Right ovarian 4.7 x 2.6 cm cyst. GI tract: Stomach is filled with fluid and food debris. No bowel obstruction. No pericolonic inflammatory changes. Appendix is normal. Vasculature and Lymph nodes: Normal caliber aorta. No abdominal or pelvic lymphadenopathy. Musculoskeletal: No concerning osseous lesion. IMPRESSION: Unchanged bilateral polycystic kidneys without obstruction. A few punctate right-sided renal stones are stable in position since prior exam. Dictated by: Dictated on workstation # [id number]
[2022-12-25 15:29] VITALS: BP 164/89
== END 2022-12-25 15:30 | disposition home or self-care (01) ==
LOC: EDUNIT# 12:01 → ER 12:04
DX: R10.32 Left lower quadrant pain (principal); Z87.442 Personal history of urinary calculi
CPT/HCPCS: 36415; 74176; 80048; 80306; 81000; 84703; 85007; 85027